=== PATIENT | female | born 1965 | race Caucasian/White ===

== ENCOUNTER 2020-03-13 08:01 | Outpatient (REF) | payer OTHER, SELFPAY ==
--- NOTE | 2020-03-13 08:05 | CT_ITS ---
EXAMINATION: CT CHEST WITHOUT CONTRAST CLINICAL INFORMATION: Pulmonary nodule. Follow-up. COMPARISON: CT chest with contrast 10/31/2018, 12/14/2017, 06/15/2017 TECHNIQUE: Multidetector volumetric CT imaging of the chest was done. No intravenous contrast. Axial MIP volume rendering provided. Sagittal and coronal reformatted images were obtained. This CT examination was performed using dose optimization techniques as appropriate, variously including the following: *Automated exposure control *Adjustment of mA and/or kV according to patient size (this includes techniques or standardized protocols for targeted exams where dose is matched to indication/reason for exam; i.e. extremities or head) *Use of iterative reconstruction technique DLP: 193 mGy-cm FINDINGS: LUNGS: The central airways are clear and there is no endobronchial lesion or bronchiectasis. There is no lobar or segmental airspace consolidation or groundglass opacity. Left lung nodularity is stable since 06/15/2017 consistent with benign nodules. There is no new nodularity. Again, there is a square pleural-based plaque posterior lateral lower lobe approximately 4 mm, series 7/439, and a pleural-based tag anterior lateral base series 7/540. Right lung nodularity is stable since 06/15/2017 consistent with benign nodules. There is no new nodularity. Largest nodule central right lower lobe just under 6 mm is triangular along an accessory fissure consistent with intraparenchymal node, series 7/355 and sagittal image 80. Next largest stable nodule 4 mm pleural-based anterior right middle lobe, series 7/421, sagittal 81. Other smaller stable nodularity again seen posteriorly series 7/192, anterior upper lobe series 7/244, anterior upper lobe series 7/274, and along the accessory fissure series 7/361. MEDIASTINUM: No no hilar or mediastinal lymphadenopathy. Heart size normal. No pericardial effusion. There is mild prominence again noted ascending aorta measuring 4.2 cm as noted previously. The aortic arch and descending thoracic aorta is unremarkable. PLEURA: There is no pleural effusion. No pleural mass or thickening. AXILLA: No lymphadenopathy. UPPER ABDOMEN: Adrenals unremarkable. There is small cyst versus focal fatty change anterior left lobe adjacent to intersegmental fissure. OSSEOUS STRUCTURES: Unremarkable. IMPRESSION: 1. Bilateral nodularity stable since CT 06/15/2017 consistent with benign nodules. No new nodule, adenopathy, or effusion. 2. Stable fullness ascending aorta 4.2 cm diameter.
== END 2020-03-13 08:02 | disposition home or self-care (01) ==
LOC: HO.CT 08:01
PROVIDERS: PCP Internal Medicine; Visit Provider Internal Medicine
DX: R91.1 Solitary pulmonary nodule (principal); I77.810 Thoracic aortic ectasia
CPT/HCPCS: 71250

== ENCOUNTER 2020-11-05 05:56 | Outpatient (REF) | payer OTHER, SELFPAY ==
[2020-11-05 07:38] LABS: MANUAL DIFF FLAG NO
[2020-11-05 07:44] LABS: Basophils Percent Auto 0.4 % (0-2); Eosinophils Absolute Auto 0.1 X10*3/uL (0.0-0.4); Hematocrit 41.6 % (37-47); Hemoglobin 14.1 g/dl (12.0-16.0); Imm Gran Abs Auto 0.01 X10*3/uL (0.00-0.03); Imm Gran Pct Auto 0.1 % (0.0-0.4); Lymphocytes Absolute Auto 3.1 X10*3/uL (1.2-4.9); Lymphocytes Percent Auto 45.5 % (20-40); Mean Corpuscular HGB Conc 33.9 g/dl (31.0-35.0); Mean Corpuscular Hemoglobin 32.7 pg (27.0-33.0); Mean Corpuscular Volume 96.5 fL (80-98); Mean Platelet Volume 9.6 fL (9.4-12.3); Monocytes Absolute Auto 0.5 X10*3/uL (0.1-1.2); Monocytes Percent Auto 7.4 % (2-11); Neutrophils Absolute Auto 3.1 X10*3/uL (2.0-8.3); Neutrophils Percent Auto 45.6 % (45-73); Platelet Count 340 X10*3/uL (160-400); Red Blood Count 4.31 X10*6/uL (4.20-5.50); Red Cell Distribution Width 12.4 % (11.0-16.0); White Blood Count 6.7 X10*3/uL (4.8-10.8)
[2020-11-05 07:50] LABS: Estimated Average Glucose 111 mg/dL; Hemoglobin A1c % 5.5 %
[2020-11-05 08:02] LABS: Alanine Aminotransferase 13 U/L (0-31); Albumin Level 4.6 g/dL (3.5-5.0); Alkaline Phosphatase 65 U/L (39-117); Anion Gap 12 (12-20); Aspartate Amino Transferase 21 U/L (5-31); Bilirubin Total 0.5 mg/dL (0.0-1.0); Blood Urea Nitrogen 12 mg/dL (9-16); Calcium 9.8 mg/dL (8.4-10.2); Carbon Dioxide 27 mmol/L (22-29); Chloride 107 mmol/L (96-108); Cholesterol 224 mg/dL; Estimated Glomerular Filt Rate > 60; Glucose Random 103 mg/dL (60-115); HDL Cholesterol 53 mg/dL; LDL Cholesterol Calculated 150 mg/dl; Potassium 4.3 mmol/L (3.3-5.1); Sodium 142 mmol/L (135-145); Total Protein 7.3 g/dL (6.5-8.0); Triglycerides 106 mg/dL; Uric Acid 4.2 mg/dL (2.4-5.7)
[2020-11-05 08:27] LABS: Free T4 (Free Thyroxine) 1.02 ng/dL (0.71-1.85); Thyroid Stimulating Hormone 3.88 uIU/mL (0.32-4.0); Vitamin D 25-OH Total 34.2 ng/mL (>30)
[2020-11-05 09:19] LABS: Folate 19.4 ng/mL (> or = 4.0); Vitamin B12 419 pg/mL (200-900)
== END 2020-11-05 05:57 | disposition home or self-care (01) ==
LOC: HO.LAB 05:56
PROVIDERS: PCP Internal Medicine; Visit Provider Internal Medicine
DX: E78.00 Pure hypercholesterolemia, unspecified (principal); R73.02 Impaired glucose tolerance (oral)
CPT/HCPCS: 36415; 80053; 80061; 82306; 82607; 82746; 83036; 84439; 84443; 84550; 85025

== ENCOUNTER 2021-05-03 15:29 | Outpatient (REF) | payer OTHER, SELFPAY ==
--- NOTE | ~2021-05-03 | US_ITS ---
EXAMINATION: US RETROPERITONEAL LIMITED (RENAL ONLY) CLINICAL INFORMATION: Unspecified abdominal pain. COMPARISON: Renal ultrasound 04/16/2010. CT abdomen and pelvis 03/14/2010. TECHNIQUE: Real-time imaging of the kidneys. FINDINGS: RIGHT KIDNEY: 10.1 x 4.6 x 5.4 cm (SAG x AP x TRV). The kidney is normal in size, contour, and echogenicity. Renal cortical thickness is normal. No calculi or focal parenchymal lesions. No hydronephrosis. LEFT KIDNEY: 9.6 x 5.2 x 6.0 cm (SAG x AP x TRV). The kidney is normal in size, contour, and echogenicity. Renal cortical thickness is normal. No calculi or focal parenchymal lesions. No hydronephrosis. US/US renal BI IMPRESSION: Unremarkable renal ultrasound.
== END 2021-05-03 15:30 | disposition home or self-care (01) ==
LOC: HO.HMGCX 15:29
PROVIDERS: PCP Internal Medicine; Visit Provider Internal Medicine
DX: R10.9 Unspecified abdominal pain (principal)
CPT/HCPCS: 76775

== ENCOUNTER 2021-08-14 07:22 | Outpatient (REF) | payer OTHER, SELFPAY ==
--- NOTE | ~2021-08-14 | XR_ITS ---
EXAMINATION: XR ELBOW, LEFT CLINICAL INFORMATION: Pain COMPARISON: None TECHNIQUE: AP, lateral, and oblique views of the left elbow. FINDINGS: The bones and soft tissues are normal. No fracture or joint effusion. Alignment is anatomic. Joint spaces are maintained. XR/XR elbow LT 2V IMPRESSION: Normal left elbow.
== END 2021-08-14 07:23 | disposition home or self-care (01) ==
LOC: HO.XRAY 07:22
PROVIDERS: PCP Internal Medicine; Visit Provider Internal Medicine
DX: M25.522 Pain in left elbow (principal)
CPT/HCPCS: 73070

== ENCOUNTER 2021-09-01 07:31 | Outpatient (REF) | payer OTHER, SELFPAY ==
--- NOTE | ~2021-09-01 | MM_ITS ---
EXAMINATION: MM SCREENING DIGITAL BREAST TOMOSYNTHESIS, BILATERAL CLINICAL INFORMATION: Screening. Asymptomatic. The lifetime risk of breast cancer based on the Tyrer-Cuzick Model is 8%. COMPARISON: Mammography: 11/20/2019, 11/06/2017, 03/21/2017 TECHNIQUE: Digital breast tomosynthesis is performed in both the craniocaudal and mediolateral oblique views along with computer-aided detection (CAD). Synthesized 2D images are generated from the tomosynthesis. FINDINGS: The breasts are almost entirely fatty (ACR BI-RADS breast composition Category a). Background stromal densities are stable. There are no significant masses, abnormal calcifications, or other abnormalities. Small dermal lesion again seen overlying the posterior upper outer right breast. MM/MM tomosynthesis screening BI IMPRESSION: No mammographic evidence of malignancy. ASSESSMENT: BI-RADS 2: Benign RECOMMENDATION: Routine annual mammography screening. This patient's information was entered into a reminder system with a target due date for their next mammogram.
== END 2021-09-01 07:32 | disposition home or self-care (01) ==
LOC: HO.MAMMO 07:31
PROVIDERS: PCP Internal Medicine; Visit Provider Internal Medicine
DX: Z12.31 Encounter for screening mammogram for malignant neoplasm of breast (principal)
CPT/HCPCS: 77063; 77067

== ENCOUNTER → 2021-10-12 13:45 | Outpatient (REF) | payer OTHER, SELFPAY ==
--- NOTE | 2021-10-12 13:50 | CA_ITS ---
Transthoracic Echocardiogram Patient (Last, First, Middle): Barbara Casarez M Gender: Female Date of : 1965 Age: 55 Procedure Date: 10/12/2021 Procedure Type: Transthoracic Echocardiogram Location: OP Height: 167.64 cm Weight: 106.6 kg BSA: 2.14 m2 Heart Rate: bpm BP: 120 / 80 mmHg Interior Block Wirer: SB Referring MD: Graciela Velez MD Symptoms: I77.810 - Thoracic aortic ectasia Study Quality: Adequate ECG Rhythm: Sinus Conclusions: - The left ventricular systolic function is normal. The calculated ejection fraction is 61% by biplane method. - There is mild calcification of the aortic valve. - There is mild dilatation of the ascending aorta measuring 4.20 cm. Findings Left Ventricle Normal left ventricular cavity size. There is normal left ventricular wall thickness. The left ventricular systolic function is normal. The calculated ejection fraction is 61% by biplane method. There is no evidence of regional wall motion abnormalities. LV peak global longitudinal strain -16.9%. Right Ventricle Normal right ventricular cavity size and systolic function. Atria Both atria are normal in size. Aortic Valve There is a normal trileaflet aortic valve. There is mild calcification of the aortic valve. There is no aortic valve stenosis. There is trace (trivial) aortic valve regurgitation. Mitral Valve The mitral valve appears normal. There is no mitral valve regurgitation. There is no mitral valve stenosis. Pulmonic Valve The pulmonic valve is likely normal. Tricuspid Valve Normal tricuspid valve structure. There is no tricuspid valve regurgitation. Tricuspid regurgitation envelope is inadequate for calculation of right ventricular systolic pressure. Great Vessels There is no dilatation of the sinuses of Valsalva, no dilatation of the sino tubular ridge, mild dilatation of the ascending aorta measuring 4.20 cm, and no dilatation of the aortic arch. Venous The inferior vena cava is normal in size and collapses greater than 50% with inspiration. Pericardium/Pleural There is no evidence of pericardial effusion. Prior Study Comparison Changes noted compared to prior study dated: 01/18/2017. Slight increase in ascending aortic size. Measurements 2D Linear Measurements IVSd: 1.02 0.6-0.9/0.6-1.0 cm LVIDd: 4.99 3.9-5.3/4.2-5.9 cm LVIDd Index: 2.33 2.4-3.2/2.2-3.1 cm/m2 LVIDs: 3.16 2.0-3.6 cm LVPWd: 0.71 0.7-1.1 cm LA Diam: 3.50 2.7-3.8/3.0-4.0 cm LAIDs Index: 1.64 1.5-2.3 cm/m2 LV Mass: 186.66 67-162/88-224 g LV Mass Index: 87.23 43-95/49-115 g/m2 LVOT Diam: 2.00 3.0+(-)1.3 cm 2D Systolic Function EF 4C: 61.50 >55% EF 2C: 62.60 >55% EF BiP: 61.40 >55% Mitral Valve MV Pk E: 0.59 MV PK A: 0.48 MV Decel Time: 238.00 E/A: 1.20 E'Lateral: 10.30 E'Medial: 8.38 E/E' Med: 7.00 E/E' Lat: 5.70 PHT: 70.00 MVA PHT: 3.14 Decel [place]: 2.47 Aortic Valve AoV Pk Pedrito: 1.28 AoV Mn [place]rito: 0.94 AoV VTI: 0.24 AoV Pk Grad: 7.00 Aov Mn Grad: 4.00 ALEX Cont.VTI: 3.14 LVOT LVOT Pk [place]: 1.26 LVOT Mn [place]: 0.85 LVOT VTI: 0.24 LVOT Pk Grad: 6.00 LVOT Mn Grad: 3.00 LVOT Diam: 2.00 LVOT Area: 3.14 Diastolic Function MV Pk E: 0.59 MV Pk A: 0.48 E/A: 1.20 E'Medial: 8.38 E/E' Med: 7.00 E' Laterial: 10.30 E/E' Lat: 5.70 Right Ventricle TAPSE (mm): 19.90 TVS' [place]: 12.50 Tricuspid Valve RA Press: 3.00 Great Vessels Aorta Sinus of Valsalva: 3.55 2.0-3.[address] [place]: 3.52 1.7-3.4 cm Ao Asc: 4.20 2.1-3.4 cm Ao Arch: 2.40 Ao Desc: 1.50 Pulmonary Valve PV Pk [place]: 0.86 Peak PV Grad: 3.00 Updated in Other Vendor System with Status of Final Wesley Funes MD electronically signed on 10/12/2021 4:40:13 PM with status of Final
== END ==
LOC: HO.CARD 13:45
PROVIDERS: PCP Internal Medicine; Visit Provider Internal Medicine
DX: I77.810 Thoracic aortic ectasia (principal)
CPT/HCPCS: 93306; 93356

== ENCOUNTER 2021-11-09 06:18 | Outpatient (REF) | payer OTHER, SELFPAY ==
[2021-11-09 06:37] LABS: MANUAL DIFF FLAG NO
[2021-11-09 07:27] LABS: Basophils Percent Auto 0.3 % (0-2); Eosinophils Absolute Auto 0.1 X10*3/uL (0.0-0.4); Eosinophils Percent Auto 1.4 % (0-4); Hematocrit 41.9 % (37.0-47.0); Hemoglobin 14.1 g/dl (12.0-16.0); Imm Gran Abs Auto 0.03 X10*3/uL (0.00-0.03); Imm Gran Pct Auto 0.5 % (0.0-0.4); Lymphocytes Absolute Auto 1.9 X10*3/uL (1.2-4.9); Lymphocytes Percent Auto 30.4 % (20-40); Mean Corpuscular HGB Conc 33.7 g/dl (31.0-35.0); Mean Corpuscular Hemoglobin 32.4 pg (27.0-33.0); Mean Corpuscular Volume 96.3 fL (80.0-98.0); Mean Platelet Volume 9.6 fL (9.4-12.3); Monocytes Absolute Auto 0.4 X10*3/uL (0.1-1.2); Monocytes Percent Auto 6.9 % (2-11); Neutrophils Absolute Auto 3.8 x10*3/uL (2.0-8.3); Neutrophils Percent Auto 60.5 % (45-73); Platelet Count 324 X10*3/uL (160-400); Red Blood Count 4.35 X10*6/uL (4.20-5.50); Red Cell Distribution Width 13.2 % (11.0-16.0); White Blood Count 6.3 X10*3/uL (4.8-10.8)
[2021-11-09 07:32] LABS: Estimated Average Glucose 114 mg/dL; Hemoglobin A1c % 5.6 %
[2021-11-09 08:05] LABS: Alanine Aminotransferase 15 U/L (0-31); Albumin Level 4.4 g/dL (3.5-5.0); Alkaline Phosphatase 69 U/L (39-117); Anion Gap 10 (12-20); Aspartate Amino Transferase 17 U/L (5-31); Bilirubin Total 0.5 mg/dL (0.0-1.0); Blood Urea Nitrogen 10 mg/dL (9-16); Calcium 9.3 mg/dL (8.4-10.2); Carbon Dioxide 31 mmol/L (22-29); Chloride 105 mmol/L (96-108); Cholesterol 234 mg/dL; Estimated Glomerular Filt Rate > 60; Glucose Random 110 mg/dL (60-115); HDL Cholesterol 47 mg/dL; LDL Cholesterol Calculated 153 mg/dl; Potassium 4.9 mmol/L (3.3-5.1); Sodium 141 mmol/L (135-145); Total Protein 7.2 g/dL (6.5-8.0); Triglycerides 172 mg/dL
[2021-11-09 08:34] LABS: Folate 9.9 ng/mL (> or = 4.0); Vitamin B12 403 pg/mL (200-900)
[2021-11-09 08:41] LABS: Free T4 (Free Thyroxine) 0.77 ng/dL (0.71-1.85); Vitamin D 25-OH Total 19.8 ng/mL (>30)
[2021-11-10 08:53] LABS: BV Int Neg Control Negative (Negative); BV Int Pos Control Positive (Positive)
[2021-11-10 09:02] LABS: CT PCR NOT DETECTED (Not Detect.); NG PCR NOT DETECTED (Not Detect.)
[2021-11-16 02:13] LABS: HPV mRNA E6/E7 rflx Not Detected (Not Detected)
== END 2021-11-09 06:19 | disposition home or self-care (01) ==
LOC: HO.LAB 06:18
PROVIDERS: PCP Internal Medicine; Visit Provider Internal Medicine
DX: Z12.4 Encounter for screening for malignant neoplasm of cervix (principal); Z11.3 Encounter for screening for infections with a predominantly sexual mode of transmission; Z11.51 Encounter for screening for human papillomavirus (HPV); R10.9 Unspecified abdominal pain; E78.00 Pure hypercholesterolemia, unspecified
CPT/HCPCS: 36415; 80053; 80061; 82306; 82607; 82746; 83036; 84439; 84443; 85025; 87086; 87480; 87491; 87510; 87591; 87624; 87660; 88142

== ENCOUNTER 2022-03-14 14:34 | Outpatient (REF) | payer OTHER, SELFPAY ==
[2022-03-14 15:14] LABS: COVID-19 Test Negative (Negative); IDNOW Serial# 16C4AD1C
== END 2022-03-14 14:35 | disposition home or self-care (01) ==
LOC: HO.LAB 14:34
PROVIDERS: Visit Provider Internal Medicine
DX: Z20.822 Contact with and (suspected) exposure to COVID-19 (principal)
CPT/HCPCS: 87635; C9803

== ENCOUNTER 2022-05-07 07:13 | Outpatient (REF) | payer OTHER, SELFPAY ==
[2022-05-07 08:21] LABS: Alanine Aminotransferase 12 U/L (0-31); Albumin Level 4.7 g/dL (3.5-5.0); Alkaline Phosphatase 72 U/L (39-117); Anion Gap 13 (12-20); Aspartate Amino Transferase 16 U/L (5-31); Blood Urea Nitrogen 12 mg/dL (9-16); Carbon Dioxide 29 mmol/L (22-29); Chloride 105 mmol/L (96-108); Cholesterol 282 mg/dL; Estimated Glomerular Filt Rate > 60; Glucose Random 105 mg/dL (60-115); HDL Cholesterol 56 mg/dL; LDL Cholesterol Calculated 195 mg/dl; Potassium 5.1 mmol/L (3.3-5.1); Sodium 142 mmol/L (135-145); Total Protein 7.6 g/dL (6.5-8.0); Triglycerides 159 mg/dL
[2022-05-07 08:33] LABS: Estimated Average Glucose 120 mg/dL; Hemoglobin A1c % 5.8 %
[2022-05-07 08:44] LABS: Bilirubin Total 0.5 mg/dL (0.0-1.0)
== END 2022-05-07 07:14 | disposition home or self-care (01) ==
LOC: HO.LAB 07:13
PROVIDERS: PCP Internal Medicine; Visit Provider Internal Medicine
DX: E78.00 Pure hypercholesterolemia, unspecified (principal); R73.02 Impaired glucose tolerance (oral)
CPT/HCPCS: 36415; 80053; 80061; 83036

== ENCOUNTER → 2022-05-27 15:01 | Outpatient (REF) | payer OTHER, SELFPAY ==
--- NOTE | 2022-05-27 15:04 | CA_ITS ---
Transthoracic Echocardiogram Patient (Last, First, Middle): Barbara Casarez M Gender: Female Date of : 1965 Age: 56 Procedure Date: 05/27/2022 Procedure Type: Transthoracic Echocardiogram Location: OP Height: 167.64 cm Weight: 94.8 kg BSA: 2.04 m2 Heart Rate: bpm BP: 134 / 80 mmHg Senior Staff Consultant: Referring MD: Graciela Velez MD Correction Lieutenant: Judd Jalloh MD Symptoms: I77.810 - Thoracic aortic ectasia Study Quality: Good ECG Rhythm: Sinus Conclusions: - 1. Normal LV systolic function with grade 1 diastolic dysfunction 2. Mild aortic regurgitation 3. Mildly dilated ascending aorta at 4.3 cm 4. No gross pericardial effusion Findings Left Ventricle Normal left ventricular size, thickness, and systolic function. The visually estimated ejection fraction is between 60-65%. Spectral Doppler is indicative of an impaired relaxation filling pattern. E/E prime ratio is <8, consistent with normal filling pressures. Evidence suggests grade I (mild) diastolic dysfunction. Right Ventricle Normal right ventricular cavity size and systolic function. Atria Both atria are normal in size. There is lipomatous hypertrophy of the interatrial septum. There is no evidence of interatrial shunt. Aortic Valve The aortic valve was not well visualized. There is mild calcification of the aortic valve. There is no aortic valve stenosis. There is mild aortic valve regurgitation. bicuspid aortic valve cannot be entirely ruled out on this study Mitral Valve Normal mitral valve structure and function. There is trace mitral valve regurgitation. There is no mitral valve stenosis. Pulmonic Valve The pulmonic valve is likely normal. There is trace pulmonic valve regurgitation. Tricuspid Valve Normal tricuspid valve structure. Tricuspid regurgitation envelope is inadequate for calculation of right ventricular systolic pressure. Normal right atrial pressure. Great Vessels The pulmonary artery was not well visualized. There is mild dilatation of the ascending aorta measuring 4.30 cm. Venous The inferior vena cava is normal in size and collapses greater than 50% with inspiration. Pericardium/Pleural There is no evidence of pericardial effusion. Prior Study Comparison Changes noted compared to prior study dated: 10/12/2021. Mild aortic regurgitation is noted on this study Measurements 2D Linear Measurements IVSd: 0.91 0.6-0.9/0.6-1.0 cm LVIDd: 4.50 3.9-5.3/4.2-5.9 cm LVIDd Index: 2.21 2.4-3.2/2.2-3.1 cm/m2 LVIDs: 3.00 2.0-3.6 cm LVPWd: 0.94 0.7-1.1 cm Ao Root: 3.90 2.1-3.5 cm LA Diam: 3.20 2.7-3.8/3.0-4.0 cm LAIDs Index: 1.57 1.5-2.3 cm/m2 LV Mass: 171.39 67-162/88-224 g LV Mass Index: 84.02 43-95/49-115 g/m2 LVOT Diam: 2.10 3.0+(-)1.3 cm Mitral Valve MV Pk E: 0.50 MV PK A: 0.56 MV Decel Time: 206.00 E/A: 0.90 E'Lateral: 11.10 E'Medial: 7.72 E/E' Med: 6.50 E/E' Lat: 4.50 PHT: 60.00 MVA PHT: 3.67 Decel [place]: 2.44 Aortic Valve AoV Pk Pedrito: 1.54 AoV Mn Pedrito: 1.07 AoV VTI: 0.33 AoV Pk Grad: 9.00 Aov Mn Grad: 5.00 ALEX Cont.VTI: 2.59 LVOT LVOT Pk [place]rito: 1.13 LVOT Mn Pedrito: 0.78 LVOT VTI: 0.25 LVOT Pk Grad: 5.00 LVOT Mn Grad: 3.00 LVOT Diam: 2.10 LVOT Area: 3.46 Diastolic Function MV Pk E: 0.50 MV Pk A: 0.56 E/A: 0.90 E'Medial: 7.72 E/E' Med: 6.50 E' Laterial: 11.10 E/E' Lat: 4.50 Right Ventricle TAPSE (mm): 25.30 TVS' [place]: 10.30 Tricuspid Valve TR Pk Pedrito: 2.09 TR Pk Grad: 17.00 Great Vessels Aorta Ao Root-2D: 3.90 2.0-3.7 cm Ao Asc: 4.30 2.1-3.4 cm Pulmonary Valve PV Pk Pedrito: 0.98 Peak PV Grad: 4.00 Updated in Other Vendor System with Status of Final Judd Jalloh MD electronically signed on 05/28/2022 10:21:17 AM with status of Final
== END ==
LOC: HO.CARD 15:01
PROVIDERS: PCP Internal Medicine; Visit Provider Internal Medicine
DX: I77.810 Thoracic aortic ectasia (principal)
CPT/HCPCS: 93306

== ENCOUNTER 2022-08-13 07:02 | Outpatient (REF) | payer OTHER, SELFPAY ==
[2022-08-13 09:15] LABS: Estimated Average Glucose 108 mg/dL; Hemoglobin A1C 149.5595 umol/L; Hemoglobin A1c % 5.4 %
[2022-08-13 09:39] LABS: Alanine Aminotransferase 12 U/L (0-31); Albumin Level 4.5 g/dL (3.5-5.0); Alkaline Phosphatase 65 U/L (39-117); Anion Gap 14 (12-20); Aspartate Amino Transferase 16 U/L (5-31); Bilirubin Total 0.5 mg/dL (0.0-1.0); Blood Urea Nitrogen 10 mg/dL (9-16); Calcium 9.5 mg/dL (8.4-10.2); Carbon Dioxide 26 mmol/L (22-29); Chloride 105 mmol/L (96-108); Cholesterol 180 mg/dL; Estimated Glomerular Filt Rate > 60; Glucose Random 89 mg/dL (60-115); HDL Cholesterol 47 mg/dL; LDL Cholesterol Calculated 114 mg/dl; Potassium 4.9 mmol/L (3.3-5.1); Sodium 140 mmol/L (135-145); Total Protein 7.2 g/dL (6.5-8.0); Triglycerides 99 mg/dL
[2022-08-13 09:40] LABS: Vitamin D 25-OH Total 54.1 ng/mL (>30)
== END 2022-08-13 07:03 | disposition home or self-care (01) ==
LOC: HO.LAB 07:02
PROVIDERS: PCP Internal Medicine; Visit Provider Internal Medicine
DX: E78.00 Pure hypercholesterolemia, unspecified (principal); E55.9 Vitamin D deficiency, unspecified; R73.02 Impaired glucose tolerance (oral)
CPT/HCPCS: 36415; 80053; 80061; 82306; 83036

== ENCOUNTER 2022-11-12 07:17 | Outpatient (REF) | payer OTHER, SELFPAY ==
[2022-11-12 07:54] LABS: MANUAL DIFF FLAG NO
[2022-11-12 08:08] LABS: Basophils Percent Auto 0.3 % (0-2); Eosinophils Absolute Auto 0.1 X10*3/uL (0.0-0.4); Eosinophils Percent Auto 0.5 % (0-4); Hematocrit 46.3 % (37.0-47.0); Hemoglobin 15.8 g/dl (12.0-16.0); Imm Gran Abs Auto 0.04 X10*3/uL (0.00-0.03); Imm Gran Pct Auto 0.4 % (0.0-0.4); Lymphocytes Percent Auto 35.9 % (20-40); Mean Corpuscular HGB Conc 34.1 g/dl (31.0-35.0); Mean Corpuscular Hemoglobin 32.4 pg (27.0-33.0); Mean Corpuscular Volume 95.1 fL (80.0-98.0); Mean Platelet Volume 9.3 fL (9.4-12.3); Monocytes Absolute Auto 0.6 X10*3/uL (0.1-1.2); Monocytes Percent Auto 5.6 % (2-11); Neutrophils Absolute Auto 6.3 x10*3/uL (2.0-8.3); Neutrophils Percent Auto 57.3 % (45-73); Platelet Count 386 X10*3/uL (160-400); Red Blood Count 4.87 X10*6/uL (4.20-5.50); Red Cell Distribution Width 13.1 % (11.0-16.0); White Blood Count 11.1 X10*3/uL (4.8-10.8)
[2022-11-12 08:12] LABS: Estimated Average Glucose 100 mg/dL; Hemoglobin A1c % 5.1 %
[2022-11-12 08:42] LABS: Alanine Aminotransferase 10 U/L (0-31); Albumin Level 4.8 g/dL (3.5-5.0); Alkaline Phosphatase 67 U/L (39-117); Anion Gap 17 (12-20); Aspartate Amino Transferase 16 U/L (5-31); Bilirubin Total 0.6 mg/dL (0.0-1.0); Blood Urea Nitrogen 14 mg/dL (9-16); Calcium 10.5 mg/dL (8.4-10.2); Carbon Dioxide 23 mmol/L (22-29); Chloride 105 mmol/L (96-108); Cholesterol 248 mg/dL; Estimated Glomerular Filt Rate > 60; Glucose Random 117 mg/dL (60-115); HDL Cholesterol 50 mg/dL; LDL Cholesterol Calculated 176 mg/dl; Potassium 4.8 mmol/L (3.3-5.1); Sodium 140 mmol/L (135-145); Total Protein 8.1 g/dL (6.5-8.0); Triglycerides 113 mg/dL
[2022-11-12 09:02] LABS: Free T4 (Free Thyroxine) 0.85 ng/dL (0.71-1.85); Thyroid Stimulating Hormone 2.63 uIU/mL (0.32-4.0); Vitamin D 25-OH Total 53.9 ng/mL (>30)
[2022-11-12 09:08] LABS: Folate 12.3 ng/mL (> or = 4.0); Vitamin B12 410 pg/mL (200-900)
== END 2022-11-12 07:18 | disposition home or self-care (01) ==
LOC: HO.LAB 07:17
PROVIDERS: PCP Internal Medicine; Visit Provider Internal Medicine
DX: R73.02 Impaired glucose tolerance (oral) (principal); E78.00 Pure hypercholesterolemia, unspecified; E55.9 Vitamin D deficiency, unspecified
CPT/HCPCS: 36415; 80053; 80061; 82306; 82607; 82746; 83036; 84439; 84443; 85025

== ENCOUNTER 2023-02-16 06:05 | Outpatient (REF) | payer OTHER, SELFPAY ==
[2023-02-16 08:12] LABS: Alanine Aminotransferase 8 U/L (0-31); Albumin Level 4.6 g/dL (3.5-5.0); Alkaline Phosphatase 60 U/L (39-117); Anion Gap 12 (12-20); Aspartate Amino Transferase 15 U/L (5-31); Bilirubin Total 0.5 mg/dL (0.0-1.0); Blood Urea Nitrogen 11 mg/dL (9-16); Calcium 9.8 mg/dL (8.4-10.2); Carbon Dioxide 25 mmol/L (22-29); Chloride 109 mmol/L (96-108); Estimated Glomerular Filt Rate > 60; Glucose Random 91 mg/dL (60-115); Sodium 142 mmol/L (135-145); Total Protein 7.5 g/dL (6.5-8.0)
[2023-02-20 14:38] LABS: Calcium (PTHI) 10.1 mg/dL (8.6-10.4); PTHI 39 pg/mL (16-77)
[2023-02-20 21:04] LABS: Calcium, Ionized 5.1 mg/dL (4.7-5.5)
== END 2023-02-16 06:06 | disposition home or self-care (01) ==
LOC: HO.LAB 06:05
PROVIDERS: PCP Internal Medicine; Visit Provider Internal Medicine
DX: E83.52 Hypercalcemia (principal)
CPT/HCPCS: 36415; 80053; 82330; 83970

== ENCOUNTER 2023-02-17 14:11 | Outpatient (AMB) | payer OTHER, SELFPAY ==
--- NOTE | 2023-02-17 14:30 | MHC.PC.OV ---
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: Not Required per policy Accompanied by: Self / Same As Patient Allergies barium sulfate Allergy (Intermediate, Verified 02/17/23 14:39) hypertension carisoprodol [CARISOPRODOL] Allergy (Intermediate, Verified 02/17/23 14:39) DIFFICULTY BREATHING Sulfa (Sulfonamide Antibiotics) [SULFA (SULFONAMIDE ANTIBIOTICS)] Allergy (Intermediate, Verified 02/17/23 14:39) NAUSEA/DIZZINESS/SEVERE BACK PAIN, dyspnea varenicline Allergy (Intermediate, Verified 02/17/23 14:39) Unknown Medication List - Last Reconciled 02/17/23 by Graciela Velez MD alprazolam 0.5 mg PO BID 30 days fluoxetine 40 mg PO DAILY 90 days ibuprofen (Motrin IB) 200 mg PO Q6H PRN loratadine 10 mg PO DAILY omeprazole 40 mg PO DAILY 90 days ondansetron HCl 8 mg PO Q12H PRN semaglutide (weight loss) 2.4 mg (0.75 mL) subcut QWEEK 90 days simvastatin 10 mg PO BEDTIME 30 days Tobacco use date assessed: 11/14/22 Dental Screening Dental Screen Date: 02/17/23 Did you have a dental visit in the last 12 months?: Yes Did you have a dental problem in the last 6 months where you did not have access to dental care?: No Was dental information given to patient?: Patient has dentist HPI hypercalcemia overweight, ERIC HPI Details 57 year old overweight female with hypercholesterolemia impaired glucose tolerance asthma generalized anxiety disorder coming in for follow-up. Last seen in October 2022. Patient has mammogram is due . Patient complained of being [place] and had no money for the last week for the semaglutide and so stop taking it discussed about and discussed about how to maintain the weight now that she has lost her weight to target decrease semaglutide but advised to keep active and eat healthy. Declined to decrease fluoxetine stop therapy because did not appreciate counselor. Discussed about the blood work parathyroid test is not in yet. Was hoping the cholesterol was tested but this was not. [facility] Medical History Counseling and coordination of care Stress at work Nausea Chronic vertigo Breast cancer screening by mammogram Elbow pain, left Obesity (BMI 30-39.9) Tear of left acetabular labrum Lumbar disc herniation Carpal tunnel syndrome Pulmonary nodule Dilated aortic root Asthma GERD (gastroesophageal reflux disease) Impaired glucose tolerance Hypercholesterolemia Allergic rhinitis Surgical History History of endometrial ablation History of tubal ligation Family History Father Emphysema of lung Mother Anxiety Diabetes Maternal Grandmother Breast cancer Son In good health Family/Other Anxiety Chronic mental illness Other Mental health problem Social History Housing: Apartment Alcohol intake: current Patient Tobacco Use Status: Former Tobacco user Tobacco use type: Cigarette Years Smoked: smokes pot. quit 02/12/2017 e-Cigarette/Vaping Use: Never Used Second Hand Smoke Exposure: Yes service: No Current occupational status: employed Cognitive needs: No Hearing needs: No Vision needs: No Questionnaire PHQ-9 Over the last 2 weeks, how often have you been bothered by any of the following problems? 1. Little interest or pleasure in doing things: not at all 2. Feeling down, depressed, or hopeless: not at all 3. Trouble falling or staying asleep, or sleeping too much: not at all 4. Feeling tired or having little energy: not at all 5. Poor appetite or overeating: not at all 6. Feeling bad about yourself - or that you are a failure or have let yourself or your family down: not at all 7. Trouble concentrating on things, such as reading the newspaper or watching television: not at all 8. Moving or speaking so slowly that other people could have noticed. Or the opposite - being so fidgety or restless that you have been moving around a lot more than usual: not at all 9. Thoughts that you would be better off or of hurting yourself in some way: not at all Total score: 0 Depression Screening Interpretation: Negative Source: Developed by Drs. Colby Cifuentes, Rosa Isela Campbell, Km Martin and colleagues, with an educational estefany from [email or web address]. Thrive Questionnaire Date Thrive assessed: 08/18/22 AUDIT C Alcohol Use Questionnaire (AUDIT-C) 1. How often do you have a drink containing alcohol?: Never Total Score: 0 ERIC-7 AMB Questionnaire ERIC-7 Date ERIC - 7 assessed: 08/18/22 Source: Developed by Drs. Colby Cifuentes, Rosa Isela Campbell, Km Martin and colleagues, with an educational estefany from [email or web address]. Physical exam (Primary Care) Vital Signs: Last Vital Signs Pulse 82 02/17/23 14:38 BP 120/74 02/17/23 14:38 Pulse Ox 98 02/17/23 14:38 Oxygen Delivery Method Room Air 02/17/23 14:43 BMI result Body Mass Index 27.0 Tobacco/Smoking Status: Tobacco use Status Tobacco use date assessed 11/14/22 02/17/23 14:31 Patient Tobacco Use Status Former Tobacco user 02/17/23 14:31 Tobacco use type Cigarette 02/17/23 14:31 e-Cigarette/Vaping Use Never Used 02/17/23 14:31 PHQ-9: PHQ-9 Score PHQ-9: Total score 0 02/17/23 14:43 Depression Screening Interpretation: Negative Thrive Assessment: Date of Thrive Assessment Date Thrive assessed 08/18/22 02/17/23 14:31 Const General: alert; No acute distress Eyes Conjunctivae: conjunctivae normal Resp Auscultation: clear to auscultation bilaterally Cardio Rate: regular rate Rhythm: regular rhythm GI Inspection: Yes normal to inspection Extrem General: Yes normal to inspection and No edema Assessment and Plan Assessment & Plan (1) Overweight (BMI 25.0-29.9): Code(s): E66.3 - Overweight Plan: continue with diet and exercise and semaglutide (2) Hypercholesterolemia: Code(s): E78.00 - Pure hypercholesterolemia, unspecified Plan: Avoid fried foods, chicken skin, eggs, butter margarine, pastries and meat. Be it pork or beef they have a lot of cholesterol LDL goal of less than 130 and triglyceride of less than 150. Patient is on simvastatin 10 mg once a day (3) Impaired glucose tolerance: Code(s): R73.02 - Impaired glucose tolerance (oral) Plan: Decrease the amount of carbohydrate intake, pasta, bread, rice and potatoes are all sugar and that is aside from all the sweet stuff, remember that fruits are good but they are Sweet also. (4) GERD (gastroesophageal reflux disease): Code(s): K21.9 - Gastro-esophageal reflux disease without esophagitis Plan: Avoid the foods that causes that usually spicy foods, tomato products, juices, coffee, soda and foods that your sensitive to. After eating do not lie down, allow 3-4 hours before in lie down. And keep the head of bed above 30 degrees to avoid the acid from going up. (5) Generalized anxiety disorder: Comment: [facility] Code(s): F41.1 - Generalized anxiety disorder Plan: Continue with counseling and therapy (6) Hypercalcemia: Code(s): E83.52 - Hypercalcemia Plan: Resolved Orders: Orders Free T4 (Free Thyroxine) 3 Months R73.02 - Impaired glucose tolerance (oral) Complete Blood Count Auto Diff 3 Months R73.02 - Impaired glucose tolerance (oral) Thyroid Stimulating Hormone 3 Months R73.02 - Impaired glucose tolerance (oral) Vitamin B12 and Folate 3 Months R73.02 - Impaired glucose tolerance (oral) Vitamin D 25-OH Total 3 Months R73.02 - Impaired glucose tolerance (oral) Comprehensive Met. Panel 3 Months R73.02 - Impaired glucose tolerance (oral) Hemoglobin A1c 3 Months R73.02 - Impaired glucose tolerance (oral) Lipid Panel 3 Months E78.00 - Pure hypercholesterolemia, unspecified, R73.02 - Impaired glucose tolerance (oral) Medications: Changed From semaglutide (weight loss) 2.4 mg (0.75 mL) subcut QWEEK 90 days 12 ea 3RF E66.9 - Obesity, unspecified To semaglutide (weight loss) 1.7 mg (0.75 mL) subcut QWEEK 90 days 12 ea 3RF E66.9 - Obesity, unspecified Coding Level of Care Code Est Pt Level 4 (07136) Diagnoses Overweight (BMI 25.0-29.9) E66.3 Hypercholesterolemia E78.00 Impaired glucose tolerance R73.02 GERD (gastroesophageal reflux disease) K21.9 Generalized anxiety disorder F41.1 Hypercalcemia E83.52
[2023-02-17 14:38] VITALS: BP 120/74; PULSE 82; O2SAT 98; BMI 27.0
== END 2023-02-17 15:04 | disposition home or self-care (01) ==
PROVIDERS: PCP Internal Medicine; Visit Provider Internal Medicine
DX: K21.9 Gastro-esophageal reflux disease without esophagitis (principal); E83.52 Hypercalcemia; E66.3 Overweight; E78.00 Pure hypercholesterolemia, unspecified; R73.02 Impaired glucose tolerance (oral); F41.1 Generalized anxiety disorder
CPT/HCPCS: 99214

== ENCOUNTER 2023-06-07 16:25 | Outpatient (REF) | payer OTHER, SELFPAY ==
[2023-06-07 16:34] LABS: MANUAL DIFF FLAG NO
[2023-06-07 17:50] LABS: Basophils Percent Auto 0.3 % (0-2); Eosinophils Absolute Auto 0.1 X10*3/uL (0.0-0.4); Eosinophils Percent Auto 0.6 % (0-4); Hematocrit 41.3 % (37.0-47.0); Hemoglobin 14.1 g/dl (12.0-16.0); Imm Gran Abs Auto 0.02 X10*3/uL (0.00-0.03); Imm Gran Pct Auto 0.3 % (0.0-0.4); Lymphocytes Absolute Auto 3.7 X10*3/uL (1.2-4.9); Lymphocytes Percent Auto 46.7 % (20-40); Mean Corpuscular HGB Conc 34.1 g/dl (31.0-35.0); Mean Corpuscular Hemoglobin 32.7 pg (27.0-33.0); Mean Corpuscular Volume 95.8 fL (80.0-98.0); Mean Platelet Volume 9.1 fL (9.4-12.3); Monocytes Absolute Auto 0.5 X10*3/uL (0.1-1.2); Monocytes Percent Auto 6.4 % (2-11); Neutrophils Absolute Auto 3.6 x10*3/uL (2.0-8.3); Neutrophils Percent Auto 45.7 % (45-73); Platelet Count 355 X10*3/uL (160-400); Red Blood Count 4.31 X10*6/uL (4.20-5.50); Red Cell Distribution Width 12.6 % (11.0-16.0); White Blood Count 7.9 X10*3/uL (4.8-10.8)
[2023-06-07 18:07] LABS: Estimated Average Glucose 100 mg/dL; Hemoglobin A1c % 5.1 % (<6.0)
[2023-06-07 18:24] LABS: Alanine Aminotransferase 9 U/L (0-31); Albumin Level 4.6 g/dL (3.5-5.0); Alkaline Phosphatase 61 U/L (39-117); Anion Gap 16 (12-20); Aspartate Amino Transferase 17 U/L (5-31); Bilirubin Total 0.5 mg/dL (0.0-1.0); Blood Urea Nitrogen 10 mg/dL (9-16); Calcium 9.7 mg/dL (8.4-10.2); Carbon Dioxide 25 mmol/L (22-29); Chloride 102 mmol/L (96-108); Cholesterol 253 mg/dL (<200); Estimated Glomerular Filt Rate > 60; Glucose Random 80 mg/dL (60-115); HDL Cholesterol 65 mg/dL (>40); LDL Cholesterol Calculated 169 mg/dL (<100); Potassium 3.8 mmol/L (3.3-5.1); Sodium 139 mmol/L (135-145); Total Protein 7.7 g/dL (6.5-8.0); Triglycerides 97 mg/dL (<150)
[2023-06-07 18:41] LABS: Free T4 (Free Thyroxine) 0.83 ng/dL (0.71-1.85); Thyroid Stimulating Hormone 6.14 uIU/mL (0.32-4.0); Vitamin D 25-OH Total 44.1 ng/mL (>30)
[2023-06-07 18:47] LABS: Vitamin B12 458 pg/mL (200-900)
== END 2023-06-07 16:26 | disposition home or self-care (01) ==
LOC: HO.LAB 16:25
PROVIDERS: PCP Internal Medicine; Visit Provider Internal Medicine
DX: R73.02 Impaired glucose tolerance (oral) (principal); E78.00 Pure hypercholesterolemia, unspecified
CPT/HCPCS: 36415; 80053; 80061; 82306; 82607; 82746; 83036; 84439; 84443; 85025

== ENCOUNTER 2023-06-08 15:25 | Outpatient (AMB) | payer OTHER, SELFPAY ==
[2023-06-08 15:26] VITALS: BP 138/76; PULSE 73; O2SAT 94; BMI 26.5
--- NOTE | 2023-06-08 15:26 | A.OFFPC_ITS ---
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: No Allergies barium sulfate Allergy (Intermediate, Verified 06/08/23 15:30) hypertension carisoprodol [CARISOPRODOL] Allergy (Intermediate, Verified 06/08/23 15:30) DIFFICULTY BREATHING Sulfa (Sulfonamide Antibiotics) [SULFA (SULFONAMIDE ANTIBIOTICS)] Allergy (Intermediate, Verified 06/08/23 15:30) NAUSEA/DIZZINESS/SEVERE BACK PAIN, dyspnea varenicline Allergy (Intermediate, Verified 06/08/23 15:30) Unknown simvastatin Adverse Reaction (Intermediate, Unverified 06/08/23 15:59) weird dreams Tobacco use date assessed: 06/08/23 HPI 3 Months F/U HPI Details 57-year-old overweight female with hyper cholesterolemia impaired glucose tolerance GERD and generalized anxiety disorder last seen in January 2023. Patient's mammogram is due colonoscopy done 2018. complaining of L neck area and deny fall - had hx of herniated disc and complaining of radiation to the L neck area and L shoulder . also stress at work. still on [facility] Medical History Counseling and coordination of care Stress at work Nausea Chronic vertigo Breast cancer screening by mammogram Elbow pain, left Obesity (BMI 30-39.9) Tear of left acetabular labrum Lumbar disc herniation Carpal tunnel syndrome Pulmonary nodule Dilated aortic root Asthma GERD (gastroesophageal reflux disease) Impaired glucose tolerance Hypercholesterolemia Allergic rhinitis Surgical History History of endometrial ablation History of tubal ligation Family History Father Emphysema of lung Mother Anxiety Diabetes Maternal Grandmother Breast cancer Son In good health Family/Other Anxiety Chronic mental illness Other Mental health problem Social History Housing: Apartment Alcohol intake: current Patient Tobacco Use Status: Former Tobacco user Tobacco use type: Cigarette Years Smoked: smokes pot. quit 02/12/2017 e-Cigarette/Vaping Use: Never Used Second Hand Smoke Exposure: Yes service: No Current occupational status: employed Cognitive needs: No Hearing needs: No Vision needs: No Questionnaire PHQ-9 Over the last 2 weeks, how often have you been bothered by any of the following problems? 1. Little interest or pleasure in doing things: not at all 2. Feeling down, depressed, or hopeless: not at all 3. Trouble falling or staying asleep, or sleeping too much: not at all 4. Feeling tired or having little energy: not at all 5. Poor appetite or overeating: not at all 6. Feeling bad about yourself - or that you are a failure or have let yourself or your family down: not at all 7. Trouble concentrating on things, such as reading the newspaper or watching television: not at all 8. Moving or speaking so slowly that other people could have noticed. Or the opposite - being so fidgety or restless that you have been moving around a lot more than usual: not at all 9. Thoughts that you would be better off or of hurting yourself in some way: not at all Total score: 0 Depression Screening Interpretation: Negative Depression Screening Done: Yes Source: Developed by Drs. Colby Cifuentes, Rosa Isela Campbell, Km Martin and colleagues, with an educational estefany from [employer]. Thrive Questionnaire Date Thrive assessed: 06/08/23 I am a: Patient What is your living situation today?: I have a steady place to live Within the past 12 months, did the food you bought not last and you didn't have the money to get more?: Never true Within the past 12 months, did you worry whether your food would run out before you got money to buy more?: Never true Do you have trouble paying for medicines?: No Do you have trouble getting transportation to medical appointments?: No Do you have trouble paying your heating and electricity bill?: No Do you have trouble taking care of your child, family member or friend?: No Do you have trouble with day-to-day activities such as bathing, preparing meals, shopping, managing finances, etc.?: No Are you currently unemployed and looking for a job?: No Are you interested in more education?: No AUDIT C Alcohol Use Questionnaire (AUDIT-C) 1. How often do you have a drink containing alcohol?: Never Total Score: 0 ERIC-7 AMB Questionnaire ERIC-7 Date ERIC - 7 assessed: 06/08/23 Feeling nervous, anxious, or on edge: 0 = Not at all Not being able to stop or control worryin = Not at all Worrying too much about different things: 0 = Not at all Trouble relaxin = Not at all Being so restless that it is hard to sit still: 0 = Not at all Becoming easily annoyed or irritable: 0 = Not at all Feeling afraid as if something awful might happen: 0 = Not at all Total ERIC-7 score (0-4 normal; 5-9 mild; 10-14 moderate; 15-21 severe): 0 Source: Developed by Drs. Colby Cifuentes, Rosa Isela Campbell, Km Martin and colleagues, with an educational estefany from [employer]. Physical exam (Primary Care) Vital Signs: Last Vital Signs Pulse 73 06/08/23 15:26 BP 138/76 06/08/23 15:26 Pulse Ox 94 06/08/23 15:26 Oxygen Delivery Method Room Air 06/08/23 15:26 BMI result Body Mass Index 26.5 Tobacco/Smoking Status: Tobacco use Status Tobacco use date assessed 06/08/23 06/08/23 15:27 Patient Tobacco Use Status Former Tobacco user 06/08/23 15:27 Tobacco use type Cigarette 06/08/23 15:27 e-Cigarette/Vaping Use Never Used 06/08/23 15:27 PHQ-9: PHQ-9 Score PHQ-9: Total score 0 06/08/23 15:27 Depression Screening Interpretation: Negative Thrive Assessment: Date of Thrive Assessment Date Thrive assessed 06/08/23 06/08/23 15:27 Const General: alert; No acute distress Eyes Conjunctivae: conjunctivae normal Resp Auscultation: clear to auscultation bilaterally Cardio Rate: regular rate Rhythm: regular rhythm GI Inspection: Yes normal to inspection Extrem General: Yes normal to inspection and No edema Assessment and Plan Assessment & Plan (1) Hypercholesterolemia: Code(s): E78.00 - Pure hypercholesterolemia, unspecified Plan: Avoid fried foods, chicken skin, eggs, butter margarine, pastries and meat. Be it pork or beef they have a lot of cholesterol LDL goal of less than 130 and triglyceride of less than 150 patient on simvastatin 10 mg at bedtime (2) Impaired glucose tolerance: Code(s): R73.02 - Impaired glucose tolerance (oral) Plan: Decrease the amount of carbohydrate intake, pasta, bread, rice and potatoes are all sugar and that is aside from all the sweet stuff, remember that fruits are good but they are Sweet also. (3) GERD (gastroesophageal reflux disease): Code(s): K21.9 - Gastro-esophageal reflux disease without esophagitis Plan: Avoid the foods that causes that usually spicy foods, tomato products, juices, coffee, soda and foods that your sensitive to. After eating do not lie down, allow 3-4 hours before in lie down. And keep the head of bed above 30 degrees to avoid the acid from going up. (4) Asthma: Code(s): J45.909 - Unspecified asthma, uncomplicated Plan: Stable (5) Generalized anxiety disorder: Comment: [facility] counselling Code(s): F41.1 - Generalized anxiety disorder Plan: Continue with counseling and therapy (6) Cervical radiculopathy: Code(s): M54.12 - Radiculopathy, cervical region (7) TSH elevation: Code(s): R79.89 - Other specified abnormal findings of blood chemistry Orders: Orders XR cervical spine 2V Today M54.12 - Radiculopathy, cervical region Lipid Panel 3 Months E78.00 - Pure hypercholesterolemia, unspecified Comprehensive Met. Panel 3 Months E78.00 - Pure hypercholesterolemia, unspecified Thyroid Stimulating Hormone 3 Months R79.89 - Other specified abnormal findings of blood chemistry Free T4 (Free Thyroxine) 3 Months R79.89 - Other specified abnormal findings of blood chemistry Medications: New atorvastatin 10 mg PO DAILY 30 tabs 3RF E78.00 - Pure hypercholesterolemia, unspecified Discontinued simvastatin Discontinued Reason: Doctor's Order 10 mg PO BEDTIME 90 tabs 3RF 30 days E78.00 - Pure hypercholesterolemia, unspecified Coding Level of Care Code Est Pt Level 4 (19057) Diagnoses Hypercholesterolemia E78.00 Impaired glucose tolerance R73.02 GERD (gastroesophageal reflux disease) K21.9 Asthma J45.909 Generalized anxiety disorder F41.1 Cervical radiculopathy M54.12 TSH elevation R79.89
== END 2023-06-08 16:09 | disposition home or self-care (01) ==
PROVIDERS: PCP Internal Medicine; Visit Provider Internal Medicine
DX: E78.00 Pure hypercholesterolemia, unspecified (principal); R73.02 Impaired glucose tolerance (oral); K21.9 Gastro-esophageal reflux disease without esophagitis; J45.909 Unspecified asthma, uncomplicated; F41.1 Generalized anxiety disorder; M54.12 Radiculopathy, cervical region; R79.89 Other specified abnormal findings of blood chemistry
CPT/HCPCS: 99214

== ENCOUNTER 2023-06-08 16:13 | Outpatient (REF) | payer OTHER, SELFPAY ==
--- NOTE | ~2023-06-08 | XR_ITS ---
EXAMINATION: XR CERVICAL SPINE CLINICAL INFORMATION: Radiculopathy. COMPARISON: CTA head and cervical spine 10/31/2018. TECHNIQUE: 3 views of the cervical spine were obtained. FINDINGS: Straightening of the cervical lordosis. Trace anterolisthesis of C4 on C5 and trace retrolisthesis of C5 on C6. No evidence of acute compression deformity. Moderate to severe intervertebral disc height loss at C5-C6 and C6-C7. Mild multilevel facet arthropathy. No prevertebral soft tissue thickening. Included portions of the lung apices are clear. XR/XR cervical spine 2V IMPRESSION: 1. No acute compression deformity. 2. Moderate to severe lower cervical spondylosis. 3. Trace anterolisthesis of C4 on C5 and trace retrolisthesis of C5 on C6.
== END 2023-06-08 16:14 | disposition home or self-care (01) ==
LOC: HO.XRAY 16:13
PROVIDERS: PCP Internal Medicine; Visit Provider Internal Medicine
DX: M54.12 Radiculopathy, cervical region (principal)
CPT/HCPCS: 72040

== ENCOUNTER 2023-09-13 15:41 | Outpatient (REF) | payer OTHER, SELFPAY ==
[2023-09-13 17:23] LABS: Alanine Aminotransferase 11 U/L (0-31); Albumin Level 4.2 g/dL (3.5-5.0); Alkaline Phosphatase 60 U/L (39-117); Anion Gap 10 (12-20); Aspartate Amino Transferase 18 U/L (5-31); Bilirubin Total 0.3 mg/dL (0.0-1.0); Blood Urea Nitrogen 14 mg/dL (9-16); Calcium 9.4 mg/dL (8.4-10.2); Carbon Dioxide 30 mmol/L (22-29); Chloride 102 mmol/L (96-108); Cholesterol 163 mg/dL (<200); Estimated Glomerular Filt Rate > 60; Glucose Random 78 mg/dL (60-115); HDL Cholesterol 54 mg/dL (>40); LDL Cholesterol Calculated 90 mg/dL (<100); Potassium 4.2 mmol/L (3.3-5.1); Sodium 138 mmol/L (135-145); Total Protein 6.8 g/dL (6.5-8.0); Triglycerides 96 mg/dL (<150)
[2023-09-13 17:38] LABS: Free T4 (Free Thyroxine) 0.78 ng/dL (0.71-1.85); Thyroid Stimulating Hormone 2.57 uIU/mL (0.32-4.0)
== END 2023-09-13 15:42 | disposition home or self-care (01) ==
LOC: HO.LAB 15:41
PROVIDERS: PCP Internal Medicine; Visit Provider Internal Medicine
DX: E78.00 Pure hypercholesterolemia, unspecified (principal); R79.89 Other specified abnormal findings of blood chemistry
CPT/HCPCS: 36415; 80053; 80061; 84439; 84443

== ENCOUNTER 2023-09-14 08:37 | Outpatient (AMB) | payer OTHER, SELFPAY ==
[2023-09-14 08:40] VITALS: BP 130/78; PULSE 88; O2SAT 98; BMI 27.0
--- NOTE | 2023-09-14 08:40 | MHC.PC.OV ---
Vital Signs 09/14/23 08:40 Height 5 ft 6 in Weight 167 lb BMI 27.0 BP 130/78 Blood Pressure Location Lt brachial Position Sitting Pulse 88 Pulse Source Pulse Oximeter Pulse Oximetry (%) 98 Oxygen Delivery Method Room Air Intake Visit Reasons: Cholesterol Allergies barium sulfate Allergy (Intermediate, Verified 09/14/23 08:40) hypertension carisoprodol [CARISOPRODOL] Allergy (Intermediate, Verified 09/14/23 08:40) DIFFICULTY BREATHING Sulfa (Sulfonamide Antibiotics) [SULFA (SULFONAMIDE ANTIBIOTICS)] Allergy (Intermediate, Verified 09/14/23 08:40) NAUSEA/DIZZINESS/SEVERE BACK PAIN, dyspnea varenicline Allergy (Intermediate, Verified 09/14/23 08:40) Unknown simvastatin Adverse Reaction (Intermediate, Verified 09/14/23 08:40) weird dreams Tobacco use date assessed: 09/14/23 Dental Screening Dental Screen Date: 09/14/23 Did you have a dental visit in the last 12 months?: No Did you have a dental problem in the last 6 months where you did not have access to dental care?: No Was dental information given to patient?: No HPI Cholesterol HPI Details 57-year-old overweight female with a history of hypercholesterolemia impaired glucose tolerance GERD asthma generalized anxiety disorder coming in for follow-up. Last seen in May 2023. Mammogram is due colonoscopy is up-to-date. Patient has complained of neck pain and an x-ray was done showing moderate to severe lower cervical spondylosis and trace anterolisthesis of the C4-C5 and trace retrolisthesis C5 on C6. This was done in May 2023. stomach ahe yesterday- ate burger. on atorvastatin - noproblem [facility] Medical History (Updated 09/14/23 @ 09:07 by Graciela Velez MD) Breast cancer screening by mammogram Flank pain Panic anxiety syndrome COVID-19 virus infection TSH elevation Cervical radiculopathy Counseling and coordination of care Stress at work Nausea Chronic vertigo Elbow pain, left Obesity (BMI 30-39.9) Tear of left acetabular labrum Lumbar disc herniation Carpal tunnel syndrome Pulmonary nodule Dilated aortic root Asthma GERD (gastroesophageal reflux disease) Impaired glucose tolerance Hypercholesterolemia Allergic rhinitis Surgical History History of endometrial ablation History of tubal ligation Family History Father Emphysema of lung Mother Anxiety Diabetes Maternal Grandmother Breast cancer Son In good health Family/Other Anxiety Chronic mental illness Other Mental health problem Social History Housing: Apartment Alcohol intake: current Patient Tobacco Use Status: Former Tobacco user Tobacco use type: Cigarette Years Smoked: smokes pot. quit 02/12/2017 e-Cigarette/Vaping Use: Never Used Second Hand Smoke Exposure: Yes service: No Current occupational status: employed Cognitive needs: No Hearing needs: No Vision needs: No Questionnaire PHQ-9 Over the last 2 weeks, how often have you been bothered by any of the following problems? 1. Little interest or pleasure in doing things: not at all 2. Feeling down, depressed, or hopeless: not at all 3. Trouble falling or staying asleep, or sleeping too much: not at all 4. Feeling tired or having little energy: not at all 5. Poor appetite or overeating: not at all 6. Feeling bad about yourself - or that you are a failure or have let yourself or your family down: not at all 7. Trouble concentrating on things, such as reading the newspaper or watching television: not at all 8. Moving or speaking so slowly that other people could have noticed. Or the opposite - being so fidgety or restless that you have been moving around a lot more than usual: not at all 9. Thoughts that you would be better off or of hurting yourself in some way: not at all Total score: 0 Depression Screening Interpretation: Negative Depression Screening Done: Yes Source: Developed by Drs. Colby Cifuentes, Rosa Isela Campbell, Km Martin and colleagues, with an educational estefany from [employer]. Thrive Questionnaire Date Thrive assessed: 09/14/23 I am a: Patient What is your living situation today?: I have a steady place to live Within the past 12 months, did the food you bought not last and you didn't have the money to get more?: Never true Within the past 12 months, did you worry whether your food would run out before you got money to buy more?: Never true Do you have trouble paying for medicines?: No Do you have trouble getting transportation to medical appointments?: No Do you have trouble paying your heating and electricity bill?: No Do you have trouble taking care of your child, family member or friend?: No Do you have trouble with day-to-day activities such as bathing, preparing meals, shopping, managing finances, etc.?: No Are you currently unemployed and looking for a job?: No Are you interested in more education?: No Currently or been in a relationship where the following occur: no concerns reported THRIVE Score: 0 AUDIT C Alcohol Use Questionnaire (AUDIT-C) 1. How often do you have a drink containing alcohol?: Never Total Score: 0 ERIC-7 AMB Questionnaire ERIC-7 Date ERIC - 7 assessed: 09/14/23 Feeling nervous, anxious, or on edge: 0 = Not at all Not being able to stop or control worryin = Not at all Worrying too much about different things: 0 = Not at all Trouble relaxin = Not at all Being so restless that it is hard to sit still: 0 = Not at all Becoming easily annoyed or irritable: 0 = Not at all Feeling afraid as if something awful might happen: 0 = Not at all Total ERIC-7 score (0-4 normal; 5-9 mild; 10-14 moderate; 15-21 severe): 0 Source: Developed by Drs. Colby Cifuentes, Rosa Isela Campbell, Km Martin and colleagues, with an educational estefany from [employer]. Physical exam (Primary Care) Vital Signs: Last Vital Signs Pulse 88 09/14/23 08:40 BP 130/78 09/14/23 08:40 Pulse Ox 98 09/14/23 08:40 Oxygen Delivery Method Room Air 09/14/23 08:40 BMI result Body Mass Index 27.0 Tobacco/Smoking Status: Tobacco use Status Tobacco use date assessed 09/14/23 09/14/23 08:47 Patient Tobacco Use Status Former Tobacco user 09/14/23 08:47 Tobacco use type Cigarette 09/14/23 08:47 e-Cigarette/Vaping Use Never Used 09/14/23 08:47 PHQ-9: PHQ-9 Score PHQ-9: Total score 0 09/14/23 09:09 Depression Screening Interpretation: Negative Thrive Assessment: Date of Thrive Assessment Date Thrive assessed 09/14/23 09/14/23 08:47 Currently or been in a relationship where the following occur: no concerns reported Const General: alert; No acute distress Eyes Conjunctivae: conjunctivae normal Resp Auscultation: clear to auscultation bilaterally Cardio Rate: regular rate Rhythm: regular rhythm GI Inspection: Yes normal to inspection Extrem General: Yes normal to inspection and No edema Assessment and Plan Assessment & Plan (1) Impaired glucose tolerance: Code(s): R73.02 - Impaired glucose tolerance (oral) Plan: Decrease the amount of carbohydrate intake, pasta, bread, rice and potatoes are all sugar and that is aside from all the sweet stuff, remember that fruits are good but they are Sweet also. (2) Hypercholesterolemia: Code(s): E78.00 - Pure hypercholesterolemia, unspecified Plan: Avoid fried foods, chicken skin, eggs, butter margarine, pastries and meat. Be it pork or beef they have a lot of cholesterol LDL goal of less than 130 and triglyceride of less than 150. (3) GERD (gastroesophageal reflux disease): Code(s): K21.9 - Gastro-esophageal reflux disease without esophagitis Plan: Avoid the foods that causes that usually spicy foods, tomato products, juices, coffee, soda and foods that your sensitive to. After eating do not lie down, allow 3-4 hours before in lie down. And keep the head of bed above 30 degrees to avoid the acid from going up. (4) Asthma: Code(s): J45.909 - Unspecified asthma, uncomplicated Plan: Stable (5) Generalized anxiety disorder: Comment: [facility] Code(s): F41.1 - Generalized anxiety disorder Plan: Continue with present medication. (6) Breast cancer screening by mammogram: Code(s): Z12.31 - Encounter for screening mammogram for malignant neoplasm of breast Plan: Patient is reminded about the mammogram (7) Cervical spondylosis: Code(s): M47.812 - Spondylosis without myelopathy or radiculopathy, cervical region Plan: Keep active. Orders: Orders Complete Blood Count Auto Diff 3 Months R73.02 - Impaired glucose tolerance (oral) Vitamin B12 and Folate 3 Months R73.02 - Impaired glucose tolerance (oral) Vitamin D 25-OH Total 3 Months R73.02 - Impaired glucose tolerance (oral) Lipid Panel 3 Months E78.00 - Pure hypercholesterolemia, unspecified, R73.02 - Impaired glucose tolerance (oral) Hemoglobin A1c 3 Months R73.02 - Impaired glucose tolerance (oral) MM tomosynthesis screening BI Today Z12.31 - Encounter for screening mammogram for malignant neoplasm of breast MR cervical spine wo con Today M47.812 - Spondylosis without myelopathy or radiculopathy, cervical region PT Evaluation and Treatment Today M47.812 - Spondylosis without myelopathy or radiculopathy, cervical region Comprehensive Met. Panel 3 Months R73.02 - Impaired glucose tolerance (oral) Free T4 (Free Thyroxine) 3 Months R73.02 - Impaired glucose tolerance (oral) Thyroid Stimulating Hormone 3 Months R73.02 - Impaired glucose tolerance (oral) Coding Level of Care Code Est Pt Level 4 (18058) Diagnoses Impaired glucose tolerance R73.02 Hypercholesterolemia E78.00 GERD (gastroesophageal reflux disease) K21.9 Asthma J45.909 Generalized anxiety disorder F41.1 Breast cancer screening by mammogram Z12.31 Cervical spondylosis M47.812
== END 2023-09-14 09:21 | disposition home or self-care (01) ==
PROVIDERS: PCP Internal Medicine; Visit Provider Internal Medicine
DX: R73.02 Impaired glucose tolerance (oral) (principal); E78.00 Pure hypercholesterolemia, unspecified; K21.9 Gastro-esophageal reflux disease without esophagitis; J45.909 Unspecified asthma, uncomplicated; F41.1 Generalized anxiety disorder; Z12.31 Encounter for screening mammogram for malignant neoplasm of breast; M47.812 Spondylosis without myelopathy or radiculopathy, cervical region
CPT/HCPCS: 99214

== ENCOUNTER 2023-10-16 07:27 | Outpatient (REF) | payer OTHER, SELFPAY | END 2023-10-16 07:28 | disposition home or self-care (01) | LOC: HO.MAMMO 07:27 | PROVIDERS: PCP Internal Medicine; Visit Provider Internal Medicine | DX: Z12.31 Encounter for screening mammogram for malignant neoplasm of breast (principal) | CPT/HCPCS: 77063; 77067 ==

== ENCOUNTER → 2023-10-16 07:45 | Outpatient (BNV) | payer OTHER, SELFPAY | PROVIDERS: PCP Internal Medicine; Visit Provider Radiology Diagnostic Radiology | DX: Z12.31 Encounter for screening mammogram for malignant neoplasm of breast (principal) | CPT/HCPCS: 77063; 77067 ==

== ENCOUNTER 2023-10-20 13:25 | Outpatient (REF) | payer OTHER, SELFPAY ==
--- NOTE | ~2023-10-20 | XR_ITS ---
EXAMINATION: XR SHOULDER, LEFT CLINICAL INFORMATION: Chronic left shoulder pain COMPARISON: Left shoulder radiograph from 06/05/2009 TECHNIQUE: 5 views of the left shoulder. FINDINGS: No acute visible fracture or dislocation. Degenerative arthropathy of the glenohumeral and acromioclavicular joint with spurring along the inferior medial aspect of the proximal humeral metadiaphysis. Joint space alignment are otherwise maintained. Soft tissues are unremarkable. Visualized portions of the chest are unremarkable. XR/XR shoulder LT min 2V IMPRESSION: 1. No acute visible fracture or dislocation. 2. Degenerative arthropathy of the glenohumeral and acromioclavicular joint with spurring along the inferior medial aspect of the proximal humeral metadiaphysis.
== END 2023-10-20 13:26 | disposition home or self-care (01) ==
LOC: HO.XRAY 13:25
PROVIDERS: PCP Internal Medicine; Visit Provider Physical Medicine & Rehabilitation
DX: M25.512 Pain in left shoulder (principal)
CPT/HCPCS: 73030

== ENCOUNTER 2023-12-02 07:03 | Outpatient (REF) | payer OTHER, SELFPAY ==
[2023-12-02 07:16] LABS: MANUAL DIFF FLAG NO
[2023-12-02 07:41] LABS: Basophils Percent Auto 0.3 % (0-2); Eosinophils Absolute Auto 0.1 X10*3/uL (0.0-0.4); Eosinophils Percent Auto 2.1 % (0-4); Hematocrit 41.1 % (37.0-47.0); Hemoglobin 14.2 g/dl (12.0-16.0); Imm Gran Abs Auto 0.02 X10*3/uL (0.00-0.03); Imm Gran Pct Auto 0.3 % (0.0-0.4); Lymphocytes Absolute Auto 2.3 X10*3/uL (1.2-4.9); Lymphocytes Percent Auto 34.1 % (20-40); Mean Corpuscular HGB Conc 34.5 g/dl (31.0-35.0); Mean Corpuscular Hemoglobin 33.6 pg (27.0-33.0); Mean Corpuscular Volume 97.4 fL (80.0-98.0); Mean Platelet Volume 9.2 fL (9.4-12.3); Monocytes Absolute Auto 0.3 X10*3/uL (0.1-1.2); Monocytes Percent Auto 5.2 % (2-11); Neutrophils Absolute Auto 3.8 x10*3/uL (2.0-8.3); Platelet Count 307 X10*3/uL (160-400); Red Blood Count 4.22 X10*6/uL (4.20-5.50); Red Cell Distribution Width 12.9 % (11.0-16.0); White Blood Count 6.6 X10*3/uL (4.8-10.8)
[2023-12-02 07:50] LABS: Estimated Average Glucose 103 mg/dL; Hemoglobin A1c % 5.2 % (<6.0)
[2023-12-02 08:15] LABS: Alanine Aminotransferase 10 U/L (0-31); Albumin Level 4.3 g/dL (3.5-5.0); Alkaline Phosphatase 60 U/L (39-117); Anion Gap 11 (12-20); Aspartate Amino Transferase 16 U/L (5-31); Bilirubin Total 0.3 mg/dL (0.0-1.0); Blood Urea Nitrogen 13 mg/dL (9-16); Calcium 9.3 mg/dL (8.4-10.2); Carbon Dioxide 28 mmol/L (22-29); Chloride 108 mmol/L (96-108); Cholesterol 183 mg/dL (<200); Estimated Glomerular Filt Rate > 60; Glucose Random 94 mg/dL (60-115); HDL Cholesterol 54 mg/dL (>40); LDL Cholesterol Calculated 101 mg/dL (<100); Potassium 4.8 mmol/L (3.3-5.1); Sodium 142 mmol/L (135-145); Total Protein 7.1 g/dL (6.5-8.0); Triglycerides 140 mg/dL (<150)
[2023-12-02 08:29] LABS: Free T4 (Free Thyroxine) 0.73 ng/dL (0.71-1.85); Thyroid Stimulating Hormone 4.35 uIU/mL (0.32-4.0)
[2023-12-02 08:39] LABS: Vitamin B12 392 pg/mL (200-900)
== END 2023-12-02 07:04 | disposition home or self-care (01) ==
LOC: HO.LAB 07:03
PROVIDERS: PCP Internal Medicine; Visit Provider Internal Medicine
DX: R73.02 Impaired glucose tolerance (oral) (principal); E78.00 Pure hypercholesterolemia, unspecified
CPT/HCPCS: 36415; 80053; 80061; 82306; 82607; 82746; 83036; 84439; 84443; 85025

== ENCOUNTER 2023-12-04 15:58 | Outpatient (AMB) | payer OTHER, SELFPAY ==
--- NOTE | 2023-12-04 16:03 | A.OFFPC_ITS ---
Vital Signs 12/04/23 16:07 Height 5 ft 6 in Weight 167 lb BMI 27.0 BP 106/62 Blood Pressure Location Lt brachial Position Sitting Pulse 71 Pulse Source Pulse Oximeter Pulse Oximetry (%) 98 Oxygen Delivery Method Room Air Intake Visit Reasons: Annual Exam Allergies barium sulfate Allergy (Intermediate, Verified 12/04/23 16:08) hypertension carisoprodol [CARISOPRODOL] Allergy (Intermediate, Verified 12/04/23 16:08) DIFFICULTY BREATHING Sulfa (Sulfonamide Antibiotics) [SULFA (SULFONAMIDE ANTIBIOTICS)] Allergy (Intermediate, Verified 12/04/23 16:08) NAUSEA/DIZZINESS/SEVERE BACK PAIN, dyspnea varenicline Allergy (Intermediate, Verified 12/04/23 16:08) Unknown simvastatin Adverse Reaction (Intermediate, Verified 12/04/23 16:08) weird dreams Medication List - Last Reconciled 12/04/23 by Graciela Velez MD alprazolam 0.5 mg PO BID 30 days atorvastatin 10 mg PO DAILY fluoxetine 40 mg PO DAILY 90 days loratadine 10 mg PO DAILY meloxicam 15 mg PO DAILY omeprazole 40 mg PO DAILY 90 days ondansetron HCl 8 mg PO Q12H PRN 21 days semaglutide (weight loss) 1.7 mg (0.75 mL) subcut QWEEK 90 days Tobacco use date assessed: 09/14/23 Dental Screening Dental Screen Date: 09/14/23 HPI Annual Exam HPI Details 58-year-old overweight female with a his tory of impaired glucose tolerance hypercholesterolemia GERD asthma generalized anxiety disorder having a physical exam today last seen 08/2023 mammogram is up-to-date colonoscopy is up-to-date October 2018, review of the notes has been seen by [facility] for the neck pain September 2023 patient was given a prescription for meloxicam [facility] Medical History (Updated 12/04/23 @ 16:37 by Graciela eVlez MD) Breast cancer screening by mammogram Flank pain Panic anxiety syndrome COVID-19 virus infection TSH elevation Cervical radiculopathy Counseling and coordination of care Stress at work Nausea Chronic vertigo Elbow pain, left Obesity (BMI 30-39.9) Tear of left acetabular labrum Lumbar disc herniation Carpal tunnel syndrome Pulmonary nodule Dilated aortic root Asthma GERD (gastroesophageal reflux disease) Impaired glucose tolerance Hypercholesterolemia Allergic rhinitis Surgical History History of endometrial ablation History of tubal ligation Family History Father Emphysema of lung Mother Anxiety Diabetes Maternal Grandmother Breast cancer Son In good health Family/Other Anxiety Chronic mental illness Other Mental health problem Social History (Updated 12/04/23 @ 16:35 by Graciela Velez MD) Housing: Apartment Alcohol intake: current Comment: once q 6 months beer Patient Tobacco Use Status: Former Tobacco user Tobacco use type: Cigarette Years Smoked: smokes pot. quit 02/12/2017 e-Cigarette/Vaping Use: Never Used Second Hand Smoke Exposure: Yes service: No Current occupational status: employed Cognitive needs: No Hearing needs: No Vision needs: No Questionnaire PHQ-9 Over the last 2 weeks, how often have you been bothered by any of the following problems? 1. Little interest or pleasure in doing things: not at all 2. Feeling down, depressed, or hopeless: not at all 3. Trouble falling or staying asleep, or sleeping too much: not at all 4. Feeling tired or having little energy: not at all 5. Poor appetite or overeating: not at all 6. Feeling bad about yourself - or that you are a failure or have let yourself or your family down: not at all 7. Trouble concentrating on things, such as reading the newspaper or watching television: not at all 8. Moving or speaking so slowly that other people could have noticed. Or the opposite - being so fidgety or restless that you have been moving around a lot more than usual: not at all 9. Thoughts that you would be better off or of hurting yourself in some way: not at all Total score: 0 Depression Screening Interpretation: Negative Depression Screening Done: Yes Source: Developed by Drs. Colby Cifuentes, Rosa Isela Campbell, Km Martin and colleagues, with an educational estefany from [employer]. Thrive Questionnaire Date Thrive assessed: 09/14/23 AUDIT C Alcohol Use Questionnaire (AUDIT-C) 1. How often do you have a drink containing alcohol?: Never Total Score: 0 ERIC-7 AMB Questionnaire ERIC-7 Date ERIC - 7 assessed: 09/14/23 Source: Developed by Drs. Colby Cifuentes, Rosa Isela Campbell, Km Martin and colleagues, with an educational estefany from [employer]. Review of Systems Const Denies poor appetite and Denies weakness Eyes Denies no additional complaints ENT Reports Normal hearing present, Denies dizziness, Denies nasal congestion, Denies tinnitus and Denies sore throat Card Denies chest pain, Denies syncope, Denies rapid heart rate and Denies dyspnea Resp Denies cough and Denies dyspnea GI Denies change in stool character, Reports constipation, Denies diarrhea, Denies nausea and Denies vomiting Denies urinary frequency, Denies difficulty voiding and Denies dysuria Neuro Reports Normal hearing present, Denies confusion, Denies dizziness, Denies syncope and Denies weakness Psych Denies confusion Physical exam (Primary Care) Vital Signs: Last Vital Signs Pulse 71 12/04/23 16:07 BP 106/62 12/04/23 16:07 Pulse Ox 98 12/04/23 16:07 Oxygen Delivery Method Room Air 12/04/23 16:07 BMI result Body Mass Index 27.0 Tobacco/Smoking Status: Tobacco use Status Tobacco use date assessed 09/14/23 12/04/23 16:05 Patient Tobacco Use Status Former Tobacco user 12/04/23 16:35 Tobacco use type Cigarette 12/04/23 16:35 e-Cigarette/Vaping Use Never Used 12/04/23 16:35 PHQ-9: PHQ-9 Score PHQ-9: Total score 0 12/04/23 16:27 Depression Screening Interpretation: Negative Thrive Assessment: Date of Thrive Assessment Date Thrive assessed 09/14/23 12/04/23 16:05 Const General: No confusion Orientation/consciousness: No confusion HENMT Head: Yes normocephalic Ears: external ears normal and TM's normal bilaterally Face and sinus: Yes normal facial exam Mouth: moist mucous membranes Throat: Yes tonsils normal Eyes Conjunctivae: conjunctivae normal Pupils: Equal, round and reactive pupils present and Pupil accommodation reflex normal Direct Ophthalmoscopy: normal light reflex Neck Neck: No lymphadenopathy Thyroid: Thyroid normal Chest Chest palpation & inspection: normal inspection of the chest Resp Effort & Inspection: normal respiratory effort and no audible wheezes Auscultation: clear to auscultation bilaterally, no crackles, no wheezes and lung sounds not diminished Cardio Rate: regular rate Rhythm: regular rhythm Peripheral pulses: radial pulses present and dorsalis pedis present GI Other: decline Palpation (GI): no masses Auscultation: normal bowel sounds and normoactive bowel sounds Rectal Exam - Female: deferred Skin General skin exam: no rashes or lesions noted Rashes: no rashes Neuro General: No confusion Cranial nerves: Yes Equal, round and reactive pupils present and Yes Normal hearing present Cognition (Neuro): normal cognition Gait exam (Neuro): Normal gait present Motor exam (neuro): 5/5 motor strength present throughout Deep tendon reflexes (DTR's): Right brachioradialis reflex intensity grade: 2+, Left brachioradialis reflex intensity grade: 2+, Right patellar reflex intensity grade: 2+ and Left patellar reflex intensity grade: 2+ Extrem General: No edema Immunizations tetanus-diphtheria toxoids-Td 2 Lf unit-2 Lf unit/0.5 mL IM suspension Performing Provider: Graciela Velez MD [facility] Administered by: REED Shea on 12/04/23 16:54 Dose Route Admin Location Dispensed Lot Number Expiration Date NDC Plaster Model [employer] 0.5 mL IM Right Deltoid 0.5 mL [id number] 07/08/24 [id number] [employer] VIS Given Date VIS Provided VIS Publication Date 12/04/23 Single Vaccine 21 Eligibility Eligibility Date Funding Source Not VFC Eligible 12/04/23 State [facility] Assessment and Plan Assessment & Plan (1) Annual physical exam: Code(s): Z00.00 - Encounter for general adult medical examination without abnormal findings Plan: Patient is advised to eat healthy, keep well hydrated, keep active and have adequate sleep. (2) Hypercholesterolemia: Code(s): E78.00 - Pure hypercholesterolemia, unspecified Plan: Avoid fried foods, chicken skin, eggs, butter margarine, pastries and meat. Be it pork or beef they have a lot of cholesterol LDL goal of less than 130 and triglyceride of less than 150 on atorvastatin 10 mg once a day (3) Impaired glucose tolerance: Code(s): R73.02 - Impaired glucose tolerance (oral) Plan: Decrease the amount of carbohydrate intake, pasta, bread, rice and potatoes are all sugar and that is aside from all the sweet stuff, remember that fruits are good but they are Sweet also. (4) GERD (gastroesophageal reflux disease): Code(s): K21.9 - Gastro-esophageal reflux disease without esophagitis Plan: Avoid the foods that causes that usually spicy foods, tomato products, juices, coffee, soda and foods that your sensitive to. After eating do not lie down, allow 3-4 hours before in lie down. And keep the head of bed above 30 degrees to avoid the acid from going up. On omeprazole 40 mg once a (5) Asthma: Code(s): J45.909 - Unspecified asthma, uncomplicated Plan: Stable (6) Dilated aortic root: Comment: Ascending aorta dilatation 4.0 12/30/2016, 4.28 October 2018, February 2020 4.2 cm, September 2019 to 4.2 cm April 2022 4.3 cm Code(s): I77.810 - Thoracic aortic ectasia Plan: Patient was advised to have echocardiogram. (7) Generalized anxiety disorder: Comment: [facility] counselling Code(s): F41.1 - Generalized anxiety disorder Plan: Continue with counseling and therapy (8) Eczema: Code(s): L30.9 - Dermatitis, unspecified Orders: Orders CA echo transthoracic complete Today I77.810 - Thoracic aortic ectasia Td State Immunization Today Z23 - Encounter for immunization Referrals Dermatology Referral L30.9 - Dermatitis, unspecified Medications: New fexofenadine (Allergy Relief (fexofenadine)) 180 mg PO DAILY 90 tabs 1RF Changed From semaglutide (weight loss) 1.7 mg (0.75 mL) subcut QWEEK 90 days 12 ea 3RF E66.9 - Obesity, unspecified To semaglutide (weight loss) 1 mg (0.5 mL) subcut QWEEK 90 days 12 ea 1RF E66.9 - Obesity, unspecified Refilled ondansetron HCl 8 mg PO Q12H 21 days PRN 9 tabs 0RF nausea and vomiting H93.19 - Tinnitus, unspecified ear Coding Level of Care Code Est Pt Prev Care 40-64y(71645) Diagnoses Annual physical exam Z00.00 Hypercholesterolemia E78.00 Impaired glucose tolerance R73.02 GERD (gastroesophageal reflux disease) K21.9 Asthma J45.909 Dilated aortic root I77.810 Generalized anxiety disorder F41.1 Eczema L30.9
[2023-12-04 16:07] VITALS: BP 106/62; PULSE 71; O2SAT 98; BMI 27.0
== END 2023-12-04 17:01 | disposition home or self-care (01) ==
PROVIDERS: PCP Internal Medicine; Visit Provider Internal Medicine
DX: Z00.00 Encounter for general adult medical examination without abnormal findings (principal); E78.00 Pure hypercholesterolemia, unspecified; R73.02 Impaired glucose tolerance (oral); K21.9 Gastro-esophageal reflux disease without esophagitis; J45.909 Unspecified asthma, uncomplicated; I77.810 Thoracic aortic ectasia; F41.1 Generalized anxiety disorder; L30.9 Dermatitis, unspecified; Z23 Encounter for immunization
CPT/HCPCS: 90471; 90714; 99396

== ENCOUNTER → 2024-01-05 14:47 | Outpatient (REF) | payer OTHER, SELFPAY ==
--- NOTE | 2024-01-05 14:50 | CA_ITS ---
Transthoracic Echocardiogram Patient (Last, First, Middle): Barbara Casarez M Gender: Female Date of : 1965 Age: 58 Procedure Date: 01/05/2024 Procedure Type: Transthoracic Echocardiogram Location: OP Height: 167. cm Weight: 71.22 kg BSA: 1.80 m2 Heart Rate: 70 bpm BP: 110 / 65 mmHg Study Lead: BALTAZAR Referring MD: Graciela Velez MD Door Closer: Judd Jalloh MD Symptoms: I77.810 - Thoracic aortic ectasia Study Quality: Adequate ECG Rhythm: Sinus Conclusions: - 1. Normal LV ejection fraction of 65-70% 2. Calcific aortic valve changes noted with anatomy not entirely clear with mild aortic regurgitation 3. Mildly dilated left atrium 4. Mildly dilated ascending aorta at 4.3 cm 5. Normal RV systolic pressure 6. No pericardial effusion Findings Left Ventricle Normal left ventricular size, thickness, and systolic function. The visually estimated ejection fraction is between 65-70%. Spectral Doppler is indicative of a normal filling pattern. Right Ventricle Normal right ventricular cavity size and systolic function. Atria The left atrium is mildly dilated. There is no evidence of interatrial shunt. The right atrium is normal in size. Aortic Valve There is no aortic valve stenosis. There is mild aortic valve regurgitation. mildly thickened and calcific aortic valve, question bicuspid valve Mitral Valve Normal mitral valve structure and function. There is trace mitral valve regurgitation. There is no mitral valve stenosis. Pulmonic Valve The pulmonic valve is likely normal. Tricuspid Valve Normal tricuspid valve structure. There is trace tricuspid valve regurgitation. The right ventricular systolic pressure is normal. The right ventricular systolic pressure is 14 mmHg. Normal right atrial pressure. There is no evidence of pulmonary hypertension. Great Vessels The pulmonary artery was not well visualized. There is mild dilatation of the ascending aorta measuring 4.30 cm. Venous The inferior vena cava is normal in size and collapses greater than 50% with inspiration. Pericardium/Pleural There is no evidence of pericardial effusion. Recommendations, Care & Conclusions Consider a SHELLI if clinically appropriate. Measurements 2D Linear Measurements IVSd: 0.98 0.6-0.9/0.6-1.0 cm LVIDd: 4.73 3.9-5.3/4.2-5.9 cm LVIDd Index: 2.63 2.4-3.2/2.2-3.1 cm/m2 LVIDs: 2.92 2.0-3.6 cm LVPWd: 0.90 0.7-1.1 cm LA Diam: 3.30 2.7-3.8/3.0-4.0 cm LAIDs Index: 1.83 1.5-2.3 cm/m2 LV Mass: 190.98 67-162/88-224 g LV Mass Index: 106.10 43-95/49-115 g/m2 LVOT Diam: 2.00 3.0+(-)1.3 cm 2D Systolic Function EF 4C: 65.60 >55% EF 2C: 70.30 >55% EF BiP: 67.90 >55% Mitral Valve MV Pk E: 0.95 MV PK A: 0.97 MV Decel Time: 246.00 E/A: 1.00 E'Lateral: 11.40 E'Medial: 7.29 E/E' Med: 13.00 E/E' Lat: 8.30 PHT: 72.00 MVA PHT: 3.06 Decel [place]: 3.85 Aortic Valve AoV Pk Pedrito: 1.40 AoV Mn Pedrito: 1.01 AoV VTI: 0.30 AoV Pk Grad: 8.00 Aov Mn Grad: 5.00 ALEX Cont.VTI: 2.86 AI Pk Pedrito: 3.54 AI [place]: 2.04 LVOT LVOT Pk Pedrito: 1.26 LVOT Mn Pedrito: 0.88 LVOT VTI: 0.28 LVOT Pk Grad: 6.00 LVOT Mn Grad: 4.00 LVOT Diam: 2.00 LVOT Area: 3.14 Diastolic Function MV Pk E: 0.95 MV Pk A: 0.97 E/A: 1.00 E'Medial: 7.29 E/E' Med: 13.00 E' Laterial: 11.40 E/E' Lat: 8.30 Right Ventricle TAPSE (mm): 21.20 TVS' Pedrito: 10.60 Tricuspid Valve TR Pk Pedrito: 1.69 TR Pk Grad: 11.00 RA Press: 3.00 RVSP: 14.00 Great Vessels Aorta Sinus of Valsalva: 3.70 2.0-3.5 cm Ao Asc: 4.30 2.1-3.4 cm Ao Arch: 3.20 Pulmonary Valve PV Pk Pedrito: 1.06 Peak PV Grad: 4.00 Updated in Other Vendor System with Status of Final Judd Jalloh MD electronically signed on 01/06/2024 2:13:36 PM with status of Final
== END ==
LOC: HO.CARD 14:47
PROVIDERS: PCP Internal Medicine; Visit Provider Internal Medicine
DX: I77.810 Thoracic aortic ectasia (principal)
CPT/HCPCS: 93306

== ENCOUNTER → 2024-01-05 14:50 | Outpatient (BNV) | payer OTHER, SELFPAY | PROVIDERS: PCP Internal Medicine; Visit Provider Internal Medicine Cardiovascular Disease | DX: I35.1 Nonrheumatic aortic (valve) insufficiency (principal) | CPT/HCPCS: 93306 ==

== ENCOUNTER 2024-04-02 13:25 | Outpatient (AMB) | payer OTHER, SELFPAY ==
[2024-04-02 13:31] VITALS: BP 122/82; PULSE 64; O2SAT 95; BMI 27.7
--- NOTE | 2024-04-02 13:31 | A.OFFPC_ITS ---
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: No Accompanied by: Self / Same As Patient Allergies barium sulfate Allergy (Intermediate, Verified 04/02/24 13:54) hypertension carisoprodol [CARISOPRODOL] Allergy (Intermediate, Verified 04/02/24 13:54) DIFFICULTY BREATHING Sulfa (Sulfonamide Antibiotics) [SULFA (SULFONAMIDE ANTIBIOTICS)] Allergy (Intermediate, Verified 04/02/24 13:54) NAUSEA/DIZZINESS/SEVERE BACK PAIN, dyspnea varenicline Allergy (Intermediate, Verified 04/02/24 13:54) Unknown simvastatin Adverse Reaction (Intermediate, Verified 04/02/24 13:54) weird dreams Medication List - Last Reconciled 04/02/24 by Tha Katz MD alprazolam 0.5 mg PO BID 30 days atorvastatin 10 mg PO DAILY fexofenadine (Allergy Relief (fexofenadine)) 180 mg PO DAILY fluoxetine 40 mg PO DAILY 90 days loratadine 10 mg PO DAILY meloxicam 15 mg PO DAILY omeprazole 40 mg PO DAILY 90 days ondansetron HCl 8 mg PO Q12H PRN 21 days Tobacco use date assessed: 04/02/24 Dental Screening Dental Screen Date: 04/02/24 Did you have a dental visit in the last 12 months?: No Did you have a dental problem in the last 6 months where you did not have access to dental care?: No Was dental information given to patient?: Patient has dentist HPI Meds follow up HPI Details Patient comes in today for her follow up visit - I am seeing patient today for Dr. Velez Patient states that she is mainly here for her routine 3 months' follow up visit so she can get her Alprazolam Rx refilled Per her previous agreement with her PCP, she has to be seen regularly every 3 months so her Alprazolam will continue to be refilled States that she overslept and missed her last appointment on 03/11/2024 and today was the earliest appointment that she could get on short notice States that she currently feels okay She denies any headaches or dizziness Denies any chest pains, no SOB No nausea/vomiting, no abdominal pain No change in bowel habits noted Adds that she is now finished with Wegovy for weight loss and last took it a few months ago She is now wondering if she can try Zepbound instead to lose weight - states that she has gained back some weight since she stopped taking Wegovy [facility] Medical History Breast cancer screening by mammogram Flank pain Panic anxiety syndrome COVID-19 virus infection TSH elevation Cervical radiculopathy Counseling and coordination of care Stress at work Nausea Chronic vertigo Elbow pain, left Obesity (BMI 30-39.9) Tear of left acetabular labrum Lumbar disc herniation Carpal tunnel syndrome Pulmonary nodule Dilated aortic root Asthma GERD (gastroesophageal reflux disease) Impaired glucose tolerance Hypercholesterolemia Allergic rhinitis Surgical History History of endometrial ablation History of tubal ligation Family History Father Emphysema of lung Mother Anxiety Diabetes Maternal Grandmother Breast cancer Son In good health Family/Other Anxiety Chronic mental illness Other Mental health problem Social History Housing: Apartment Alcohol intake: current Comment: once q 6 months beer Patient Tobacco Use Status: Former Tobacco user Tobacco use type: Cigarette Years Smoked: smokes pot. quit 02/12/2017 e-Cigarette/Vaping Use: Never Used Second Hand Smoke Exposure: Yes service: No Current occupational status: employed Cognitive needs: No Hearing needs: No Vision needs: No Questionnaire PHQ-9 Over the last 2 weeks, how often have you been bothered by any of the following problems? 1. Little interest or pleasure in doing things: not at all 2. Feeling down, depressed, or hopeless: not at all 3. Trouble falling or staying asleep, or sleeping too much: not at all 4. Feeling tired or having little energy: not at all 5. Poor appetite or overeating: not at all 6. Feeling bad about yourself - or that you are a failure or have let yourself or your family down: not at all 7. Trouble concentrating on things, such as reading the newspaper or watching television: not at all 8. Moving or speaking so slowly that other people could have noticed. Or the opposite - being so fidgety or restless that you have been moving around a lot more than usual: not at all 9. Thoughts that you would be better off or of hurting yourself in some way: not at all Total score: 0 Depression Screening Interpretation: Negative Depression Screening Done: Yes 35105 - PHQ-9 Billing: Yes Source: Developed by Drs. Colby Cifuentes, Rosa Isela Campbell, Km Martin and colleagues, with an educational estefany from [employer]. Thrive Questionnaire Date Thrive assessed: 04/02/24 I am a: Patient What is your living situation today?: I have a steady place to live Within the past 12 months, did the food you bought not last and you didn't have the money to get more?: Never true Within the past 12 months, did you worry whether your food would run out before you got money to buy more?: Never true Do you have trouble paying for medicines?: No Do you have trouble getting transportation to medical appointments?: No Do you have trouble paying your heating and electricity bill?: No Do you have trouble taking care of your child, family member or friend?: No Do you have trouble with day-to-day activities such as bathing, preparing meals, shopping, managing finances, etc.?: No Are you currently unemployed and looking for a job?: No Are you interested in more education?: No Please select the resources that you would like help with: None Currently or been in a relationship where the following occur: No concerns reported THRIVE Score: 0 AUDIT C Alcohol Use Questionnaire (AUDIT-C) 1. How often do you have a drink containing alcohol?: Never Total Score: 0 Score Reviewed/Action Taken: Yes ERIC-7 AMB Questionnaire ERIC-7 Date ERIC - 7 assessed: 04/02/24 Feeling nervous, anxious, or on edge: 0 = Not at all Not being able to stop or control worryin = Not at all Worrying too much about different things: 0 = Not at all Trouble relaxin = Not at all Being so restless that it is hard to sit still: 0 = Not at all Becoming easily annoyed or irritable: 0 = Not at all Feeling afraid as if something awful might happen: 0 = Not at all Total ERIC-7 score (0-4 normal; 5-9 mild; 10-14 moderate; 15-21 severe): 0 Source: Developed by Drs. Colby Cifuentes, Rosa Isela Campbell, Km Martin and colleagues, with an educational estefany from [employer]. Review of Systems Const Denies chills, Denies fatigue, Denies fever(s) and Denies headache(s) ENT Denies dysphagia, Denies dizziness, Denies otalgia, Denies headache(s), Denies neck pain, Denies odynophagia and Denies sore throat Card Denies chest pain, Denies palpitations and Denies dyspnea Resp Denies chest congestion, Denies cough and Denies dyspnea GI Denies abdominal pain, Denies constipation, Denies dysphagia, Denies heartburn, Denies diarrhea, Denies nausea, Denies odynophagia and Denies vomiting Denies difficulty voiding, Denies nocturia, Denies dysuria and Denies urinary urgency Musc Denies back pain and Denies neck pain Skin/Breast Denies rash Neuro Denies dizziness and Denies headache(s) Psych Reports anxiety (controlled on current Rx) Endo Denies fatigue and Denies palpitations Physical exam (Primary Care) Vital Signs: Last Vital Signs Pulse 64 04/02/24 13:31 BP 122/82 04/02/24 13:31 Pulse Ox 95 04/02/24 13:31 Oxygen Delivery Method Room Air 04/02/24 13:31 BMI result Body Mass Index 27.7 Tobacco/Smoking Status: Tobacco use Status Tobacco use date assessed 04/02/24 04/02/24 13:35 Patient Tobacco Use Status Former Tobacco user 04/02/24 13:35 Tobacco use type Cigarette 04/02/24 13:35 e-Cigarette/Vaping Use Never Used 04/02/24 13:35 PHQ-9: PHQ-9 Score PHQ-9: Total score 0 04/02/24 13:36 Depression Screening Interpretation: Negative Thrive Assessment: Date of Thrive Assessment Date Thrive assessed 04/02/24 04/02/24 13:35 Currently or been in a relationship where the following occur: No concerns reported Const General: no acute distress and alert HENMT Throat: Yes posterior oropharynx normal and Yes tonsils normal (no TP congestion) Neck Neck: Yes no lymphadenopathy and Yes supple Thyroid: Thyroid normal Resp Auscultation: clear to auscultation bilaterally, no rales and no wheezes Cardio Rate: regular rate Rhythm: regular rhythm Heart sounds: no murmurs GI Palpation (GI): Soft to palpation and nontender Auscultation: normal bowel sounds General: Yes no CVA tenderness Back/Spine/Pelvis Back: no CVA tenderness Skin Rashes: no rashes Extrem General: Yes no clubbing, cyanosis or edema Coding Level of Care Code Est Pt Level 4 (28752) Diagnoses Hypercholesterolemia E78.00 Gastroesophageal reflux disease without esophagitis K21.9 Esophagitis presence: without esophagitis Generalized anxiety disorder F41.1 Overweight (BMI 25.0-29.9) E66.3 Additional Codes PHQ-9 - 73401 - PHQ-9 Billing: Yes ([id number]) Assessment & Plan Assessment & Plan (1) Hypercholesterolemia: Code(s): E78.00 - Pure hypercholesterolemia, unspecified Category: Medical Plan: Reinforced low cholesterol diet Continue Atorvastatin 10 mg QD (2) GERD (gastroesophageal reflux disease): Code(s): K21.9 - Gastro-esophageal reflux disease without esophagitis Category: Medical Qualifiers: Esophagitis presence: without esophagitis Qualified Code(s): K21.9 - Gastro-esophageal reflux disease without esophagitis Plan: Dietary restrictions reinforced in GERD Continue Omeprazole 40 mg QD (3) Generalized anxiety disorder: Comment: [facility] Code(s): F41.1 - Generalized anxiety disorder Category: Medical Plan: Continue Alprazolam 0.5 mg BID PRN (Rx refilled) and Fluoxetine 40 mg QD (4) Overweight (BMI 25.0-29.9): Code(s): E66.3 - Overweight Category: Medical Plan: Reinforced diet/exercise as tolerated/lose weight Per request, will now try her on Zepbound 2.5 mg SQ once a week to help her with her weight loss but advised that this may need a PA to be done Plan Follow up with PCP as scheduled in May 2024 Medications: New tirzepatide (weight loss) (Zepbound) for 4 weeks 2.5 mg (0.5 mL) subcut QWEEK 4 weeks 2 mL 0RF Refilled alprazolam 0.5 mg PO BID 30 days 60 tabs 0RF F43.20 - Adjustment disorder, uns pecified
== END 2024-04-02 14:00 | disposition home or self-care (01) ==
LOC: HO.HMCH 13:25
PROVIDERS: PCP Internal Medicine; Visit Provider Internal Medicine
DX: E78.00 Pure hypercholesterolemia, unspecified (principal); K21.9 Gastro-esophageal reflux disease without esophagitis; F41.1 Generalized anxiety disorder; E66.3 Overweight

== ENCOUNTER → 2024-04-02 13:25 | Outpatient (BNVA) | payer OTHER, SELFPAY | PROVIDERS: PCP Internal Medicine; Visit Provider Internal Medicine | DX: E78.00 Pure hypercholesterolemia, unspecified (principal); K21.9 Gastro-esophageal reflux disease without esophagitis; F41.1 Generalized anxiety disorder; E66.3 Overweight; Z68.27 Body mass index [BMI] 27.0-27.9, adult; Z79.899 Other long term (current) drug therapy | CPT/HCPCS: 96127 ==

== ENCOUNTER 2024-06-11 14:32 | Outpatient (AMB) | payer OTHER, SELFPAY ==
[2024-06-11 14:38] VITALS: BP 100/78; PULSE 69; TEMP 37.3; O2SAT 96; BMI 27.6
--- NOTE | 2024-06-11 14:38 | A.OFFPC_ITS ---
Vital Signs 06/11/24 14:38 Height 5 ft 6 in Weight 171 lb 2 oz BMI 27.6 BP 100/78 Blood Pressure Location Lt brachial Position Sitting Pulse 69 Pulse Source Pulse Oximeter Temp 99.2 F Temp Source Oral Pulse Oximetry (%) 96 Oxygen Delivery Method Room Air Intake Visit Reasons: review MEDS Toxicology Supervisor Required: No Accompanied by: Self / Same As Patient Allergies barium sulfate Allergy (Intermediate, Verified 06/11/24 21:56) hypertension carisoprodol [CARISOPRODOL] Allergy (Intermediate, Verified 06/11/24 14:38) DIFFICULTY BREATHING Sulfa (Sulfonamide Antibiotics) [SULFA (SULFONAMIDE ANTIBIOTICS)] Allergy (Intermediate, Verified 06/11/24 14:38) NAUSEA/DIZZINESS/SEVERE BACK PAIN, dyspnea varenicline Allergy (Intermediate, Verified 06/11/24 14:38) Unknown simvastatin Adverse Reaction (Intermediate, Verified 06/11/24 14:38) weird dreams Medication List - Last Reconciled 06/11/24 by CLEMENCIA Foote alprazolam 0.5 mg PO BID 30 days atorvastatin 10 mg PO DAILY fexofenadine (Allergy Relief (fexofenadine)) 180 mg PO DAILY fluoxetine 40 mg PO DAILY 90 days loratadine 10 mg PO DAILY omeprazole 40 mg PO DAILY 90 days ondansetron HCl 8 mg PO Q12H PRN 21 days Tobacco use date assessed: 06/11/24 Dental Screening Dental Screen Date: 06/11/24 Did you have a dental visit in the last 12 months?: Yes Did you have a dental problem in the last 6 months where you did not have access to dental care?: No Was dental information given to patient?: Patient has dentist HPI review MEDS HPI Details The patient is a 58 year old female with significant past medical history of asthma, GERD, hypercholesterolemia, irritable bowel syndrome and constipation The patient is presenting today requesting guidance to deal with self-described massive hemorrhoid Patient reports chronic reoccurring hemorrhoids. She reports that her current hemorrhoid is massive She started taking Prevagen recently and was wondering if this could have been the cause Patient reports that she does not want her hemorrhoids to be looked at and she is just requesting guidance in treating it. Reports getting them in the past and they have always resolved The patient is also requesting a referral to Orthopedics She reports that her right knee keeps dislocating and she has been putting it back into place Reports that this process has been painful for her. She denies any trauma to her right knee This has been on and off for about a year. Reports that the pain is 10/10 whenever her knee comes out of socket. She reports that she had a knee brace in the past but she is not sure where it is at this time. [facility] Medical History Breast cancer screening by mammogram Flank pain Panic anxiety syndrome COVID-19 virus infection TSH elevation Cervical radiculopathy Counseling and coordination of care Stress at work Nausea Chronic vertigo Elbow pain, left Obesity (BMI 30-39.9) Tear of left acetabular labrum Lumbar disc herniation Carpal tunnel syndrome Pulmonary nodule Dilated aortic root Asthma GERD (gastroesophageal reflux disease) Impaired glucose tolerance Hypercholesterolemia Allergic rhinitis Surgical History History of endometrial ablation History of tubal ligation Family History Father Emphysema of lung Mother Anxiety Diabetes Maternal Grandmother Breast cancer Son In good health Family/Other Anxiety Chronic mental illness Other Mental health problem Social History Housing: Apartment Alcohol intake: current Comment: once q 6 months beer Patient Tobacco Use Status: Former Tobacco user Tobacco use type: Cigarette Years Smoked: smokes pot. quit 02/12/2017 e-Cigarette/Vaping Use: Never Used Second Hand Smoke Exposure: Yes service: No Current occupational status: employed Cognitive needs: No Hearing needs: No Vision needs: No Questionnaire PHQ-9 Over the last 2 weeks, how often have you been bothered by any of the following problems? 1. Little interest or pleasure in doing things: not at all 2. Feeling down, depressed, or hopeless: not at all 3. Trouble falling or staying asleep, or sleeping too much: not at all 4. Feeling tired or having little energy: not at all 5. Poor appetite or overeating: not at all 6. Feeling bad about yourself - or that you are a failure or have let yourself or your family down: not at all 7. Trouble concentrating on things, such as reading the newspaper or watching television: not at all 8. Moving or speaking so slowly that other people could have noticed. Or the opposite - being so fidgety or restless that you have been moving around a lot more than usual: not at all 9. Thoughts that you would be better off or of hurting yourself in some way: not at all Total score: 0 Depression Screening Interpretation: Negative Depression Screening Done: Yes 18929 - PHQ-9 Billing: Yes Source: Developed by Drs. Colby Cifuentes, Rosa Isela Campbell, Km Martin and colleagues, with an educational estefany from [employer]. Thrive Questionnaire Date Thrive assessed: 06/11/24 I am a: Patient What is your living situation today?: I have a steady place to live Within the past 12 months, did the food you bought not last and you didn't have the money to get more?: Never true Within the past 12 months, did you worry whether your food would run out before you got money to buy more?: Never true Do you have trouble paying for medicines?: No Do you have trouble getting transportation to medical appointments?: No Do you have trouble paying your heating and electricity bill?: No Do you have trouble taking care of your child, family member or friend?: No Do you have trouble with day-to-day activities such as bathing, preparing meals, shopping, managing finances, etc.?: No Are you currently unemployed and looking for a job?: No Are you interested in more education?: No Please select the resources that you would like help with: None Currently or been in a relationship where the following occur: No concerns reported THRIVE Score: 0 AUDIT C Alcohol Use Questionnaire (AUDIT-C) 1. How often do you have a drink containing alcohol?: Never Total Score: 0 Score Reviewed/Action Taken: Yes ERIC-7 AMB Questionnaire ERIC-7 Date ERIC - 7 assessed: 06/11/24 Feeling nervous, anxious, or on edge: 0 = Not at all Not being able to stop or control worryin = Not at all Worrying too much about different things: 0 = Not at all Trouble relaxin = Not at all Being so restless that it is hard to sit still: 0 = Not at all Becoming easily annoyed or irritable: 0 = Not at all Feeling afraid as if something awful might happen: 0 = Not at all Total ERIC-7 score (0-4 normal; 5-9 mild; 10-14 moderate; 15-21 severe): 0 Source: Developed by Drs. Colby Cifuentes, Rosa Isela Campbell, Km Martin and colleagues, with an educational estefany from [employer]. ERIC-7 Assessment Billing ERIC-7 Assessment Tool: ERIC-7 Assessment 46497 Review of Systems Const Details: Denies chills, Denies fatigue, Denies fever(s), Denies headache(s) and Denies weakness HEENT Denies change in vision, Denies dizziness, Denies headache(s), Denies hearing loss, Denies nasal congestion, Denies sinus pain, Denies sinus pressure and Denies sore throat Card Denies chest pain, Denies lightheadedness, Denies dyspnea and Denies other (palpitations) Resp Denies cough, Denies dyspnea and Denies wheezing GI Denies abdominal pain, Denies melena, Denies hematochezia, Denies change in bowel habits, Denies dyspepsia and Denies nausea + reports recurrent hemorrhoid Denies hematuria and Denies dysuria Musc Denies abnormal gait, Denies myalgias, + report right knee recurrent dislocation, Denies numbness and Denies tingling Skin/Breast Denies rash, Denies unusual bruising and Denies wounds Neuro Denies abnormal gait, Denies dizziness, Denies headache(s), Denies memory loss, Denies numbness, Denies Sensory deficit (Neuro), Denies tingling and Denies weakness Psych Denies anxiety, Denies depression and Denies memory loss Endo Denies cold intolerance, Denies fatigue, Denies heat intolerance, Denies polydipsia and Denies polyuria Kamar/Lymph Denies easy bleeding and Denies easy bruising Aller/Immun Denies wheezing Physical exam (Primary Care) Vital Signs: Last Vital Signs Temp 99.2 F 06/11/24 14:38 Pulse 69 06/11/24 14:38 BP 100/78 06/11/24 14:38 Pulse Ox 96 06/11/24 14:38 Oxygen Delivery Method Room Air 06/11/24 14:38 BMI result Body Mass Index 27.6 Tobacco/Smoking Status: Tobacco use Status Tobacco use date assessed 06/11/24 06/11/24 14:42 Patient Tobacco Use Status Former Tobacco user 06/11/24 14:42 Tobacco use type Cigarette 06/11/24 14:42 e-Cigarette/Vaping Use Never Used 06/11/24 14:42 PHQ-9: PHQ-9 Score PHQ-9: Total score 0 06/11/24 22:21 Depression Screening Interpretation: Negative Thrive Assessment: Date of Thrive Assessment Date Thrive assessed 06/11/24 06/11/24 14:42 Currently or been in a relationship where the following occur: No concerns reported Const Other: General: no acute distress, well developed, alert and awake Nutritional Appearance: well nourished Orientation/consciousness: patient oriented x3 HENMT Head: Yes normocephalic and Yes atraumatic Eyes Pupils: Equal, round and reactive pupils present and Pupil accommodation reflex normal EOM: EOMs intact bilaterally Neck Neck: Yes normal visual inspection, Yes no lymphadenopathy and Yes trachea midline Thyroid: Thyroid normal Carotids: no bruits Lymphatic: no lymphadenopathy noted Chest Chest palpation & inspection: normal inspection of the chest Resp Effort & Inspection: normal respiratory effort Auscultation: clear to auscultation bilaterally Cardio Rate: regular rate Rhythm: regular rhythm Heart sounds: S1 normal heart sound present, S2 normal heart sound present, no gallops, no murmurs and no rubs Bruits: no abdominal aortic bruits and no carotid bruits GI Palpation (GI): abdomen soft and nontender to palpation Auscultation: normal bowel sounds Anal: deferred per patient's request General: Yes no CVA tenderness Back/Spine/Pelvis Back: no CVA tenderness Skin General: warm and dry. Normal skin color. Normal skin turgor Lesions: no lesions Nails: normal Neuro General: patient oriented x3, gait normal Cranial nerves: Yes Equal, round and reactive pupils present Cognition (Neuro): normal cognition Gait exam (Neuro): Normal gait present Extrem General: Yes normal to inspection, No edema and No calf tenderness, right knee + ROM with a popping sound. No crepitus, no edema or erythema Psych Appearance: grossly normal Affect: normal affect Attitude: cooperative Thought process: Normal thought process present Coding Level of Care Code Est Pt Level 3 (72138) Diagnoses Dislocation of right knee, subsequent encounter S83.104D Encounter type: subsequent encounter External hemorrhoid K64.4 Additional Codes ERIC-7 Assessment Billing - ERIC-7 Assessment Tool: ERIC-7 Assessment 33643 ([id number]) PHQ-9 - 65922 - PHQ-9 Billing: Yes ([id number]) Time Spent (min) 28 Assessment & Plan Assessment & Plan (1) Right knee dislocation: Code(s): S83.104A - Unspecified dislocation of right knee, initial encounter Category: Medical Qualifiers: Encounter type: subsequent encounter Qualified Code(s): S83.104D - Unspecified dislocation of right knee, subsequent encounter Plan: Reports reoccur right knee dislocation: Requesting orthopedic referral Orthopedic referral placed (2) External hemorrhoid: Code(s): K64.4 - Residual hemorrhoidal skin tags Category: Medical Plan: Encouraged lifestyle and dietary modification, specifically increased fiber intake and adequate fluids Discouraged spending excessive time straining during bowel movements Encouraged hemorrhoid ointment or suppository otc May use tucks wipes for itching If hemorrhoids continue to be significant, may require surgical consultation Plan Follow up with PCP in 3 months Orders: Orders Comprehensive [place]. Panel Fast 3 Months E55.9 - Vitamin D deficiency, unspecified, E78.00 - Pure hypercholesterolemia, unspecified, E83.52 - Hypercalcemia, F41.1 - Generalized anxiety disorder, F43.20 - Adjustment disorder, unspecified, J45.20 - Mild intermittent asthma, uncomplicated, K21.9 - Gastro-esophageal reflux disease without esophagitis, K58.0 - Irritable bowel syndrome with diarrhea, K59.00 - Constipation, unspecified, R73.02 - Impaired glucose tolerance (oral) Lipid Panel 3 Months E55.9 - Vitamin D deficiency, unspecified, E78.00 - Pure hypercholesterolemia, unspecified, E83.52 - Hypercalcemia, F41.1 - Generalized anxiety disorder, F43.20 - Adjustment disorder, unspecified, J45.20 - Mild intermittent asthma, uncomplicated, K21.9 - Gastro-esophageal reflux disease without esophagitis, K58.0 - Irritable bowel syndrome with diarrhea, K59.00 - Constipation, unspecified, R73.02 - Impaired glucose tolerance (oral) Free T4 (Free Thyroxine) 3 Months E55.9 - Vitamin D deficiency, unspecified, E78.00 - Pure hypercholesterolemia, unspecified, E83.52 - Hypercalcemia, F41.1 - Generalized anxiety disorder, F43.20 - Adjustment disorder, unspecified, J45.20 - Mild intermittent asthma, uncomplicated, K21.9 - Gastro-esophageal reflux disease without esophagitis, K58.0 - Irritable bowel syndrome with diarrhea, K59.00 - Constipation, unspecified, R73.02 - Impaired glucose tolerance (oral) Complete Blood Count Auto Diff 3 Months E55.9 - Vitamin D deficiency, unspecified, E78.00 - Pure hypercholesterolemia, unspecified, E83.52 - Hypercalcemia, F41.1 - Generalized anxiety disorder, F43.20 - Adjustment disorder, unspecified, J45.20 - Mild intermittent asthma, uncomplicated, K21.9 - Gastro-esophageal reflux disease without esophagitis, K58.0 - Irritable bowel syndrome with diarrhea, K59.00 - Constipation, unspecified, R73.02 - Impaired glucose tolerance (oral) Hemoglobin A1c 3 Months E55.9 - Vitamin D deficiency, unspecified, E78.00 - Pure hypercholesterolemia, unspecified, E83.52 - Hypercalcemia, F41.1 - Generalized anxiety disorder, F43.20 - Adjustment disorder, unspecified, J45.20 - Mild intermittent asthma, uncomplicated, K21.9 - Gastro-esophageal reflux disease without esophagitis, K58.0 - Irritable bowel syndrome with diarrhea, K59.00 - Constipation, unspecified, R73.02 - Impaired glucose tolerance (oral) Vitamin D 25-OH Total 3 Months E55.9 - Vitamin D deficiency, unspecified, E78.00 - Pure hypercholesterolemia, unspecified, E83.52 - Hypercalcemia, F41.1 - Generalized anxiety disorder, F43.20 - Adjustment disorder, unspecified, J45.20 - Mild intermittent asthma, uncomplicated, K21.9 - Gastro-esophageal reflux disease without esophagitis, K58.0 - Irritable bowel syndrome with diarrhea, K59.00 - Constipation, unspecified, R73.02 - Impaired glucose tolerance (oral) TSH reflex Free T4 3 Months E55.9 - Vitamin D deficiency, unspecified, E78.00 - Pure hypercholesterolemia, unspecified, E83.52 - Hypercalcemia, F41.1 - Generalized anxiety disorder, F43.20 - Adjustment disorder, unspecified, J45.20 - Mild intermittent asthma, uncomplicated, K21.9 - Gastro-esophageal reflux disease without esophagitis, K58.0 - Irritable bowel syndrome with diarrhea, K59.00 - Constipation, unspecified, R73.02 - Impaired glucose tolerance (oral) Referrals Orthopedics Referral S83.104A - Unspecified dislocation of right knee, initial encounter
== END 2024-06-11 15:18 | disposition home or self-care (01) ==
PROVIDERS: PCP Internal Medicine
DX: K64.4 Residual hemorrhoidal skin tags (principal); S83.104D Unspecified dislocation of right knee, subsequent encounter

== ENCOUNTER → 2024-06-11 14:32 | Outpatient (BNVA) | payer OTHER, SELFPAY | PROVIDERS: PCP Internal Medicine | DX: S83.104D Unspecified dislocation of right knee, subsequent encounter (principal); K64.4 Residual hemorrhoidal skin tags; J45.909 Unspecified asthma, uncomplicated | CPT/HCPCS: 96127 ==

== ENCOUNTER 2024-07-11 09:10 | Outpatient (REF) | payer OTHER, SELFPAY | END 2024-07-11 09:11 | disposition home or self-care (01) | LOC: HO.HOSX 09:10 | PROVIDERS: Visit Provider Physician Assistant | DX: Z13.89 Encounter for screening for other disorder (principal) ==

== ENCOUNTER 2024-09-05 10:03 | Outpatient (AMB) | payer OTHER, SELFPAY ==
[2024-09-05 10:11] VITALS: BP 110/72; BMI 29.4
--- NOTE | 2024-09-05 10:11 | A.OFFPC_ITS ---
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 Accompanied by: Self / Same As Patient Allergies barium sulfate Allergy (Intermediate, Verified 09/05/24 10:24) hypertension carisoprodol [CARISOPRODOL] Allergy (Intermediate, Verified 09/05/24 10:24) DIFFICULTY BREATHING Sulfa (Sulfonamide Antibiotics) [SULFA (SULFONAMIDE ANTIBIOTICS)] Allergy (Intermediate, Verified 09/05/24 10:24) NAUSEA/DIZZINESS/SEVERE BACK PAIN, dyspnea varenicline Allergy (Intermediate, Verified 09/05/24 10:24) Unknown simvastatin Adverse Reaction (Intermediate, Verified 09/05/24 10:24) weird dreams Medication List - Last Reconciled 09/05/24 by Manju Carr MD alprazolam 0.5 mg PO BID 30 days atorvastatin 10 mg PO DAILY fexofenadine (Allergy Relief (fexofenadine)) 180 mg PO DAILY fluoxetine 40 mg PO DAILY 90 days ibuprofen 600 mg PO TID loratadine 10 mg PO DAILY omeprazole 40 mg PO DAILY 90 days ondansetron HCl 8 mg PO Q12H PRN 21 days Tobacco use date assessed: 06/11/24 Dental Screening Dental Screen Date: 06/11/24 HPI HPI Comments History of Present Illness Details The patient is a 58-year-old female presenting with an abdominal wall abscess and neck pain. The abscess, present for a month, is sizable, red, and increasingly painful, mistaken initially for a pimple. Aggravated by badge placement at work, attempts with topical agents heightened discomfort. Fears of infection ensued due to bubbling post-application of hydrochloroxide. Cervical spondylosis management saw prior specialty consultation, but current exacerbation of neck pain severely restricts mobility, causing bilateral arm radiation and headaches. Inability to function due to intense pain persists beyond weekends despite topical and heat application. Current pain locates in the shoulder and neck area, prompting contemplation of muscle relaxants and the necessity for physical therapy referrals due to her previous successful response to such treatment. She also has GERD stable with PPIs. History of elevated TSH that will be repeated. Also has depression well control with SSRIs. [facility] Medical History (Updated 09/05/24 @ 10:42 by Manju Carr MD) TSH elevation Cervical radiculopathy Breast cancer screening by mammogram Flank pain Panic anxiety syndrome COVID-19 virus infection Counseling and coordination of care Stress at work Nausea Chronic vertigo Elbow pain, left Obesity (BMI 30-39.9) Tear of left acetabular labrum Lumbar disc herniation Carpal tunnel syndrome Pulmonary nodule Dilated aortic root Asthma GERD (gastroesophageal reflux disease) Impaired glucose tolerance Hypercholesterolemia Allergic rhinitis Surgical History History of endometrial ablation History of tubal ligation Family History Father Emphysema of lung Mother Anxiety Diabetes Maternal Grandmother Breast cancer Son In good health Family/Other Anxiety Chronic mental illness Other Mental health problem Social History Housing: Apartment Alcohol intake: current Comment: once q 6 months beer Patient Tobacco Use Status: Former Tobacco user Tobacco use type: Cigarette Years Smoked: smokes pot. quit 02/12/2017 e-Cigarette/Vaping Use: Never Used Second Hand Smoke Exposure: Yes service: No Current occupational status: employed Cognitive needs: No Hearing needs: No Vision needs: No Questionnaire Thrive Questionnaire Date Thrive assessed: 06/11/24 ERIC-7 AMB Questionnaire ERIC-7 Date ERIC - 7 assessed: 06/11/24 Source: Developed by Drs. Colby Cifuentes, Rosa Isela Campbell, Km Martin and colleagues, with an educational estefany from [employer]. Review of Systems Const All systems reviewed & are unremarkable except as noted in HPI and below Card Denies chest pain at rest, Denies chest pain with activity, Denies edema, Denies irregular heart rhythm, Denies claudication, Denies dyspnea, Denies dyspnea on exertion, Denies orthopnea, Denies paroxysmal nocturnal dyspnea and Denies slow heart rate Resp Denies cough, Denies dyspnea and Denies dyspnea on exertion GI Denies abdominal pain, Denies change in bowel habits, Denies excessive flatus, Denies nausea and Denies vomiting Physical exam (Primary Care) Vital Signs: Last Vital Signs BP 110/72 09/05/24 10:11 BMI result Body Mass Index 29.4 Tobacco/Smoking Status: Tobacco use Status Tobacco use date assessed 06/11/24 09/05/24 10:16 Patient Tobacco Use Status Former Tobacco user 09/05/24 10:16 Tobacco use type Cigarette 09/05/24 10:16 e-Cigarette/Vaping Use Never Used 09/05/24 10:16 Thrive Assessment: Date of Thrive Assessment Date Thrive assessed 06/11/24 09/05/24 10:16 Neck Other: Limited lateral neck movements, limited neck flexion and extension Neck: Yes tender Resp Effort & Inspection: normal respiratory effort Auscultation: clear to auscultation bilaterally Cardio Jugular venous distension: no JVD Rate: regular rate Rhythm: regular rhythm Heart sounds: S1 normal heart sound present and S2 normal heart sound present Skin Other: Abdominal wall abscess Extrem General: Yes full ROM Coding Level of Care Code Est Pt Level 4 (02756) Complex EM visit Add On G2211 Diagnoses Cervical radiculopathy M54.12 Cutaneous abscess of abdominal wall L02.211 Hypercholesterolemia E78.00 TSH elevation R79.89 Gastroesophageal reflux disease without esophagitis K21.9 Esophagitis presence: without esophagitis Mild major depression F32.0 Time Spent (min) 22 Assessment & Plan Assessment & Plan (1) Cervical radiculopathy: Code(s): M54.12 - Radiculopathy, cervical region Category: Medical (2) Cutaneous abscess of abdominal wall: Code(s): L02.211 - Cutaneous abscess of abdominal wall Category: Medical (3) Hypercholesterolemia: Code(s): E78.00 - Pure hypercholesterolemia, unspecified Category: Medical (4) TSH elevation: Code(s): R79.89 - Other specified abnormal findings of blood chemistry Category: Medical (5) GERD (gastroesophageal reflux disease): Code(s): K21.9 - Gastro-esophageal reflux disease without esophagitis Category: Medical Qualifiers: Esophagitis presence: without esophagitis Qualified Code(s): K21.9 - Gastro-esophageal reflux disease without esophagitis (6) Mild major depression: Code(s): F32.0 - Major depressive disorder, single episode, mild Category: Medical Plan Today's plan addresses the abdominal abscess and severe neck pain stemming from cervical spondylosis. I prescribed an oral antibiotic to manage the infection. For neck pain relief, methocarbamol will start for muscle relaxation, particularly avoiding sleepiness-inducing muscle relaxants due to allergy history. I arranged a referral to [facility] for physiotherapy. Work accommodations with rest were facilitated, providing absence notes for recovery days. Coordination will continue with upcoming appointments for monitoring ongoing hyperlipidemia and potential adjustments to existing atorvastatin. Weight management initiatives remain aligned with upcoming insurance processes for Zepbound consideration. Patient was informed and verbally consented to the use of an ambient scribe for clinic note documentation during this visit. During the visit, I discussed the presenting issues of the abdominal cyst and neck pain extensively. I confirmed that the cyst appears infected, requiring immediate antibiotic therapy, reassuring the patient of minimal risk associated with non-sulfa options. I explained the rationale for starting methocarbamol for acute neck pain given her allergy to Soma, ensuring it is convenient, non- sedative, and will likely improve symptoms. Options for physiotherapy were presented, including referral authorization to [facility] for focused therapy as a primary non-surgical intervention. I emphasized rest from work duties with medical notes issued for required days off. Hyperlipidemia management through lipid panel testing and continued atorvastatin was noted, alongside chronic weight management considerations. The patient expressed understanding and agreement with the plan. Orders: Orders Lipid Panel Today E78.5 - Hyperlipidemia, unspecified Referrals Pain Management Referral M54.12 - Radiculopathy, cervical region Medications: New methocarbamol 500 mg PO TID 7 days 21 tabs 0RF cephalexin 500 mg PO Q12H 7 days 14 caps 0RF Discontinued ondansetron HCl Discontinued Reason: Patient Completed Course 8 mg PO Q12H 21 days PRN 9 tabs 0RF nausea and vomiting H93.19 - Tinnitus, unspecified ear Patient Instructions: - Complete antibiotic course as prescribed. - Begin methocarbamol at the lowest dose; observe for side effects. - Rest and modify activities to minimize neck strain. - Attend referral physiotherapy at [facility]. - Follow-up with Dr. Nielsen to manage chronic conditions. - Perform fasting for the upcoming lipid panel test. - Avoid any known allergens in medications. - Monitor for any worsening symptoms or new concerns, and seek care if needed. - Continue participation in [employer] for weight management. - Return to work when symptoms permit, with provided note.
== END 2024-09-05 10:37 | disposition home or self-care (01) ==
LOC: HO.HMCH 10:03
PROVIDERS: PCP Internal Medicine; Visit Provider Internal Medicine
DX: M54.12 Radiculopathy, cervical region (principal); F32.0 Major depressive disorder, single episode, mild; L02.211 Cutaneous abscess of abdominal wall; E78.00 Pure hypercholesterolemia, unspecified; R79.89 Other specified abnormal findings of blood chemistry; K21.9 Gastro-esophageal reflux disease without esophagitis

== ENCOUNTER → 2024-09-05 10:03 | Outpatient (BNVA) | payer OTHER, SELFPAY | PROVIDERS: PCP Internal Medicine; Visit Provider Internal Medicine | DX: Z13.89 Encounter for screening for other disorder (principal) ==

== ENCOUNTER 2024-09-14 06:59 | Outpatient (REF) | payer OTHER, SELFPAY ==
[2024-09-14 07:15] LABS: MANUAL DIFF FLAG NO
[2024-09-14 07:35] LABS: Basophils Percent Auto 0.3 % (0-2); Eosinophils Absolute Auto 0.1 X10*3/uL (0.0-0.4); Eosinophils Percent Auto 1.5 % (0-4); Hematocrit 42.3 % (37.0-47.0); Hemoglobin 14.3 g/dl (12.0-16.0); Imm Gran Abs Auto 0.03 X10*3/uL (0.00-0.03); Imm Gran Pct Auto 0.5 % (0.0-0.4); Lymphocytes Absolute Auto 2.2 X10*3/uL (1.2-4.9); Lymphocytes Percent Auto 32.6 % (20-40); Mean Corpuscular HGB Conc 33.8 g/dl (31.0-35.0); Mean Corpuscular Hemoglobin 32.4 pg (27.0-33.0); Mean Corpuscular Volume 95.7 fL (80.0-98.0); Mean Platelet Volume 9.1 fL (9.4-12.3); Monocytes Absolute Auto 0.4 X10*3/uL (0.1-1.2); Monocytes Percent Auto 5.7 % (2-11); Neutrophils Absolute Auto 3.9 x10*3/uL (2.0-8.3); Neutrophils Percent Auto 59.4 % (45-73); Platelet Count 327 X10*3/uL (160-400); Red Blood Count 4.42 X10*6/uL (4.20-5.50); Red Cell Distribution Width 12.9 % (11.0-16.0); White Blood Count 6.6 X10*3/uL (4.8-10.8)
[2024-09-14 07:52] LABS: Estimated Average Glucose 117 mg/dL; Hemoglobin A1C 146.8776 umol/L; Hemoglobin A1c % 5.7 % (<6.0); Total Hemoglobin (HGBA1C) 3795.8084 umol/L
[2024-09-14 08:10] LABS: Alanine Aminotransferase 16 U/L (0-31); Albumin Level 4.3 g/dL (3.5-5.0); Alkaline Phosphatase 72 U/L (39-117); Aspartate Amino Transferase 25 U/L (5-31); Bilirubin Total 0.4 mg/dL (0.0-1.0); Blood Urea Nitrogen 14 mg/dL (9-16); Calcium 9.5 mg/dL (8.4-10.2); Cholesterol 191 mg/dL (<200); Estimated Glomerular Filt Rate > 60; Glucose Fasting 100 mg/dL (60-99); HDL Cholesterol 70 mg/dL (>40); LDL Cholesterol Calculated 102 mg/dL (<100); Total Protein 7.2 g/dL (6.5-8.0); Triglycerides 96 mg/dL (<150)
[2024-09-14 08:18] LABS: Anion Gap 12 (12-20); Carbon Dioxide 28 mmol/L (22-29); Chloride 107 mmol/L (96-108); Potassium 4.7 mmol/L (3.3-5.1); Sodium 142 mmol/L (135-145)
[2024-09-14 08:32] LABS: Free T4 (Free Thyroxine) 0.73 ng/dL (0.71-1.85); TSH reflex Free T4 3.43 uIU/mL (0.32-4.0); Vitamin D 25-OH Total 33.8 ng/mL (>30)
== END 2024-09-14 07:00 | disposition home or self-care (01) ==
LOC: HO.LAB 06:59
PROVIDERS: PCP Internal Medicine; Visit Provider Internal Medicine
DX: K59.00 Constipation, unspecified (principal); E78.5 Hyperlipidemia, unspecified; K58.0 Irritable bowel syndrome with diarrhea; F41.1 Generalized anxiety disorder; F43.20 Adjustment disorder, unspecified; J45.20 Mild intermittent asthma, uncomplicated; K21.9 Gastro-esophageal reflux disease without esophagitis; E78.00 Pure hypercholesterolemia, unspecified; R73.02 Impaired glucose tolerance (oral); E83.52 Hypercalcemia
CPT/HCPCS: 36415; 80053; 80061; 82306; 83036; 84439; 84443; 85025

== ENCOUNTER 2024-09-16 09:53 | Outpatient (AMB) | payer OTHER, SELFPAY ==
[2024-09-16 10:01] VITALS: BP 140/84; PULSE 108; TEMP 36.2; O2SAT 98; BMI 29.9
--- NOTE | 2024-09-16 10:01 | MHC.PC.OV ---
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 Accompanied by: Self / Same As Patient Allergies barium sulfate Allergy (Intermediate, Verified 09/16/24 10:06) hypertension carisoprodol [CARISOPRODOL] Allergy (Intermediate, Verified 09/16/24 10:06) DIFFICULTY BREATHING Sulfa (Sulfonamide Antibiotics) [SULFA (SULFONAMIDE ANTIBIOTICS)] Allergy (Intermediate, Verified 09/16/24 10:06) NAUSEA/DIZZINESS/SEVERE BACK PAIN, dyspnea varenicline Allergy (Intermediate, Verified 09/16/24 10:06) Unknown simvastatin Adverse Reaction (Intermediate, Verified 09/16/24 10:06) weird dreams Medication List - Last Reconciled 09/16/24 by Graciela Velez MD alprazolam 0.5 mg PO BID 30 days atorvastatin 10 mg PO DAILY doxycycline hyclate 100 mg PO DAILY fexofenadine (Allergy Relief (fexofenadine)) 180 mg PO DAILY fluoxetine 40 mg PO DAILY 90 days ibuprofen 600 mg PO TID loratadine 10 mg PO DAILY methocarbamol 500 mg PO TID 7 days omeprazole 40 mg PO DAILY 90 days Tobacco use date assessed: 06/11/24 Dental Screening Dental Screen Date: 06/11/24 [facility] Medical History (Updated 09/16/24 @ 10:14 by Graciela Velez MD) TSH elevation Cervical radiculopathy Breast cancer screening by mammogram Flank pain Panic anxiety syndrome COVID-19 virus infection Counseling and coordination of care Stress at work Nausea Chronic vertigo Elbow pain, left Obesity (BMI 30-39.9) Tear of left acetabular labrum Lumbar disc herniation Carpal tunnel syndrome Pulmonary nodule Dilated aortic root Asthma GERD (gastroesophageal reflux disease) Impaired glucose tolerance Hypercholesterolemia Allergic rhinitis Surgical History History of endometrial ablation History of tubal ligation Family History Father Emphysema of lung Mother Anxiety Diabetes Maternal Grandmother Breast cancer Son In good health Family/Other Anxiety Chronic mental illness Other Mental health problem Social History Housing: Apartment Alcohol intake: current Comment: once q 6 months beer Patient Tobacco Use Status: Former Tobacco user Tobacco use type: Cigarette Years Smoked: smokes pot. quit 02/12/2017 e-Cigarette/Vaping Use: Never Used Second Hand Smoke Exposure: Yes service: No Current occupational status: employed Cognitive needs: No Hearing needs: No Vision needs: No Questionnaire Thrive Questionnaire Date Thrive assessed: 06/11/24 ERIC-7 AMB Questionnaire ERIC-7 Date ERIC - 7 assessed: 06/11/24 Source: Developed by Drs. Colby Cifuentes, Rosa Isela Campbell, Km Martin and colleagues, with an educational estefany from [employer]. Physical exam (Primary Care) Vital Signs: Last Vital Signs Temp 97.1 F 09/16/24 10:01 Pulse 108 H 09/16/24 10:01 BP 140/84 H 09/16/24 10:01 Pulse Ox 98 09/16/24 10:01 Oxygen Delivery Method Room Air 09/16/24 10:01 BMI result Body Mass Index 29.9 Tobacco/Smoking Status: Tobacco use Status Tobacco use date assessed 06/11/24 09/16/24 10:08 Patient Tobacco Use Status Former Tobacco user 09/16/24 10:08 Tobacco use type Cigarette 09/16/24 10:08 e-Cigarette/Vaping Use Never Used 09/16/24 10:08 Thrive Assessment: Date of Thrive Assessment Date Thrive assessed 06/11/24 09/16/24 10:08 Const General: alert; No acute distress Eyes Conjunctivae: conjunctivae normal Resp Auscultation: clear to auscultation bilaterally Cardio Rate: regular rate Rhythm: regular rhythm GI Inspection: Yes normal to inspection Extrem General: Yes normal to inspection and No edema Coding Level of Care Code Est Pt Level 4 (97317) Complex EM visit Add On G2211 Diagnoses Impaired glucose tolerance R73.02 Hypercholesterolemia E78.00 Gastroesophageal reflux disease without esophagitis K21.9 Esophagitis presence: without esophagitis Mild intermittent asthma without complication J45.20 Asthma severity: mild Asthma persistence: intermittent Asthma complication type: uncomplicated Dilated aortic root I77.810 Dislocation of right knee, subsequent encounter S83.104D Encounter type: subsequent encounter Cutaneous abscess of abdominal wall L02.211 Cervical spondylosis M47.812 Mild major depression F32.0 Assessment & Plan Assessment & Plan (1) Impaired glucose tolerance: Code(s): R73.02 - Impaired glucose tolerance (oral) Category: Medical Plan: Decrease the amount of carbohydrate intake, pasta, bread, rice and potatoes are all sugar and that is aside from all the sweet stuff, remember that fruits are good but they are Sweet also. (2) Hypercholesterolemia: Code(s): E78.00 - Pure hypercholesterolemia, unspecified Category: Medical Plan: Avoid fried foods, chicken skin, eggs, butter margarine, pastries and meat. Be it pork or beef they have a lot of cholesterol on atorvastatin LDL goal of less than 130 and triglyceride of less than 150 (3) GERD (gastroesophageal reflux disease): Code(s): K21.9 - Gastro-esophageal reflux disease without esophagitis Category: Medical Qualifiers: Esophagitis presence: without esophagitis Qualified Code(s): K21.9 - Gastro-esophageal reflux disease without esophagitis Plan: Avoid the foods that causes that usually spicy foods, tomato products, juices, coffee, soda and foods that your sensitive to. After eating do not lie down, allow 3-4 hours before in lie down. And keep the head of bed above 30 degrees to avoid the acid from going up. (4) Asthma: Code(s): J45.909 - Unspecified asthma, uncomplicated Category: Medical Qualifiers: Asthma severity: mild Asthma persistence: intermittent Asthma complication type: uncomplicated Qualified Code(s): J45.20 - Mild intermittent asthma, uncomplicated Plan: Stable has not been requiring any inhaler (5) Dilated aortic root: Comment: Ascending aorta dilatation 4.0 12/30/2016, 4.28 October 2018, February 2020 4.2 cm, September 2019 to 4.2 cm April 2022 4.3 cm December 2023 4.3 cm Code(s): I77.810 - Thoracic aortic ectasia Category: Medical Plan: Continue to monitor and last tested in December 2023 4.3 cm control the blood pressure (6) Right knee dislocation: Code(s): S83.104A - Unspecified dislocation of right knee, initial encounter Category: Medical Qualifiers: Encounter type: subsequent encounter Qualified Code(s): S83.104D - Unspecified dislocation of right knee, subsequent encounter Plan: Patient was referred to orthopedics but did not see the note. (7) Cutaneous abscess of abdominal wall: Code(s): L02.211 - Cutaneous abscess of abdominal wall Category: Medical Plan: Patient was treated with antibiotic (8) Cervical spondylosis: Code(s): M47.812 - Spondylosis without myelopathy or radiculopathy, cervical region Category: Medical Plan: seeing [facility] and will have PT september 2024 (9) Mild major depression: Code(s): F32.0 - Major depressive disorder, single episode, mild Category: Medical Plan: Continuing with fluoxetine. Patient states going to retire soon and when she is feeling better might decrease the fluoxetine next time. Plan History of Present Illness The patient is a 58-year-old female presenting for follow-up of multiple chronic conditions. Her medical history includes hypercholesterolemia, asthma, GERD, and anxiety disorder. She has a resolved history of tuberculosis and ongoing symptoms suggestive of irritable bowel syndrome with episodes of diarrhea. The patient has a history of abdominal wall abscess treated with antibiotics, which has improved significantly with no current signs of infection. She also suffers from cervical spondylosis and recent flare-ups have necessitated short-term use of prednisone and muscle relaxants, with an upcoming physical therapy evaluation planned. Her right knee pain due to degenerative changes has remained chronic yet stable. Routine blood work showed normal results, aside from slightly increased Hemoglobin A1c, suggesting careful monitoring of blood sugar levels. Health Maintenance - Last mammogram conducted mid-2023. - Colonoscopy performed in 2018. - Last blood work done in August: normal blood count, electrolytes, renal function, and LDL levels. - LDL goal is less than 130 mg/dL and triglycerides less than 150 mg/dL. - Vitamin D and thyroid levels within normal limits. - Patient is on atorvastatin for hypercholesterolemia management. - Active discussions around weight management and potential start on Zepbound after completing weight loss program. 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 - Family Status: Recently experienced a family , expecting inheritance. - Substance Use: Occasionally uses marijuana, mainly edibles; reports vaping occasionally. - Exercise and Activity: Considering joining a gym with a pool; plans to utilize physical therapy for neck and shoulder issues. - Weight Management: Engaged in weight loss program, considering medical intervention for obesity. Review of Systems - Constitutional: Denies fever. - Respiratory: Reports asthma. - Cardiovascular: No specific symptoms reported. - Gastrointestinal: Reports diarrhea, history of GERD and irritable bowel syndrome. - Musculoskeletal: Reports neck pain, right knee pain, and shoulder discomfort. - Dermatologic: Previously had an infected pimple/abscess. - Psychiatric: Reports anxiety, insomnia, and emotional eating. Physical Exam Results - Echocardiogram: Aortic root measured at 4.3 cm, normal ejection fraction. - Laboratory: Normal blood count, electrolytes, renal function, hemoglobin A1c 5.7%, and LDL levels indicated within desired range. Plan I will continue management of hypercholesterolemia with atorvastatin, aiming to maintain LDL and triglyceride targets. Asthma is stable with current therapies, while GERD remains controlled with monitoring. Anxiety disorder management is under review, with a possible decrease in fluoxetine dosage targeted for the future. Physical therapy is scheduled for cervical spondylosis and shoulder pain relief. Use of prednisone for short-term inflammation management is planned, monitoring potential hyperglycemic effects. Continued care for the abdominal wall abscess is warranted with antibiotic ointment usage, and the upcoming evaluation for Zepbound treatment for obesity is anticipated. Patient was informed and verbally consented to the use of an ambient scribe for clinic note documentation during this visit. Discussion Notes I discussed the implications of current symptomatology and potential effects of long-term prednisone use for cervical spondylosis, emphasizing the consideration of impacts on her blood sugar levels. The weight management approach was thoroughly reviewed, contemplating lifestyle adjustments alongside pharmaceutical interventions following program completion in September. Furthermore, the patient was advised on the potential cardiovascular risks associated with smoking marijuana, particularly when undergoing surgery. Consent for current and proposed medical interventions was obtained following detailed conversations about risks, benefits, and alternative options for each chronic and acute condition presented. I recommended follow-up appointments to reassess treatment efficacy and to monitor the patient's progress in her ongoing health maintenance plans. Patient Instructions - Continue current medications as prescribed. - Apply antibiotic ointment to the abscess site if any symptoms arise. - Attend scheduled physical therapy sessions starting October 08. - Monitor blood sugar levels if using prednisone. - Inform us of any changes in symptoms or concerns. - Follow up after six months to reassess weight management program and potential for starting Zepbound therapy. - Consider lifestyle modifications to promote heart health and weight loss. - Avoid smoking marijuana due to associated risks. Medications: New doxycycline hyclate 100 mg PO DAILY 14 caps 0RF L02.211 - Cutaneous abscess of abdominal wall
== END 2024-09-16 10:27 | disposition home or self-care (01) ==
LOC: HO.HMCH 09:53
PROVIDERS: PCP Internal Medicine; Visit Provider Internal Medicine
DX: R73.02 Impaired glucose tolerance (oral) (principal); I77.810 Thoracic aortic ectasia; F32.0 Major depressive disorder, single episode, mild; E78.00 Pure hypercholesterolemia, unspecified; K21.9 Gastro-esophageal reflux disease without esophagitis; J45.20 Mild intermittent asthma, uncomplicated; S83.104D Unspecified dislocation of right knee, subsequent encounter; L02.211 Cutaneous abscess of abdominal wall; M47.812 Spondylosis without myelopathy or radiculopathy, cervical region

== ENCOUNTER → 2024-09-16 09:53 | Outpatient (BNVA) | payer OTHER, SELFPAY | PROVIDERS: PCP Internal Medicine; Visit Provider Internal Medicine | DX: Z13.89 Encounter for screening for other disorder (principal) ==

== ENCOUNTER 2024-12-17 15:54 | Outpatient (AMB) | payer OTHER, SELFPAY ==
[2024-12-17 16:04] VITALS: BP 116/80; PULSE 74; RESP 16; TEMP 36.3; O2SAT 96; BMI 29.7
--- NOTE | 2024-12-17 16:04 | MHC.PC.OV ---
Vital Signs 12/17/24 16:04 Height 5 ft 6 in Weight 184 lb 2 oz BMI 29.7 BP 116/80 Blood Pressure Location Lt brachial Position Sitting Respiration 16 Pulse 74 Pulse Source Pulse Oximeter Temp 97.3 F Temp Source Temporal Artery Scan Pulse Oximetry (%) 96 Oxygen Delivery Method Room Air Intake Visit Reasons: overweight, cholesterol Allergies barium sulfate Allergy (Intermediate, Verified 12/17/24 16:04) hypertension carisoprodol (CARISOPRODOL) Allergy (Intermediate, Verified 12/17/24 16:04) DIFFICULTY BREATHING Sulfa (Sulfonamide Antibiotics) (SULFA (SULFONAMIDE ANTIBIOTICS)) Allergy (Intermediate, Verified 12/17/24 16:04) NAUSEA/DIZZINESS/SEVERE BACK PAIN, dyspnea varenicline Allergy (Intermediate, Verified 12/17/24 16:04) Unknown simvastatin Adverse Reaction (Intermediate, Verified 12/17/24 16:04) weird dreams Medication List - Last Reconciled 12/17/24 by Graciela Velez MD alprazolam 0.5 mg PO BID 30 days atorvastatin 10 mg PO DAILY fexofenadine (Allergy Relief (fexofenadine)) 180 mg PO DAILY fluoxetine 20 mg PO DAILY 90 days ibuprofen 600 mg PO TID loratadine 10 mg PO DAILY methocarbamol 500 mg PO TID 7 days omeprazole 40 mg PO DAILY 90 days Tobacco use date assessed: 12/17/24 Dental Screening Dental Screen Date: 12/17/24 Did you have a dental visit in the last 12 months?: Yes Did you have a dental problem in the last 6 months where you did not have access to dental care?: No Was dental information given to patient?: Patient has dentist [facility] Medical History TSH elevation Cervical radiculopathy Breast cancer screening by mammogram Flank pain Panic anxiety syndrome COVID-19 virus infection Counseling and coordination of care Stress at work Nausea Chronic vertigo Elbow pain, left Obesity (BMI 30-39.9) Tear of left acetabular labrum Lumbar disc herniation Carpal tunnel syndrome Pulmonary nodule Dilated aortic root Asthma GERD (gastroesophageal reflux disease) Impaired glucose tolerance Hypercholesterolemia Allergic rhinitis Surgical History History of endometrial ablation History of tubal ligation Family History Father Emphysema of lung Mother Anxiety Diabetes Maternal Grandmother Breast cancer Son In good health Family/Other Anxiety Chronic mental illness Other Mental health problem Social History Housing: Apartment Alcohol intake: current Comment: once q 6 months beer Patient Tobacco Use Status: Former Tobacco user Tobacco use type: Cigarette Years Smoked: smokes pot. quit 02/12/2017 e-Cigarette/Vaping Use: Never Used Second Hand Smoke Exposure: Yes service: No Current occupational status: employed Cognitive needs: No Hearing needs: No Vision needs: No Questionnaire PHQ-9 Over the last 2 weeks, how often have you been bothered by any of the following problems? 1. Little interest or pleasure in doing things: not at all 2. Feeling down, depressed, or hopeless: not at all 3. Trouble falling or staying asleep, or sleeping too much: not at all 4. Feeling tired or having little energy: not at all 5. Poor appetite or overeating: not at all 6. Feeling bad about yourself - or that you are a failure or have let yourself or your family down: not at all 7. Trouble concentrating on things, such as reading the newspaper or watching television: not at all 8. Moving or speaking so slowly that other people could have noticed. Or the opposite - being so fidgety or restless that you have been moving around a lot more than usual: not at all 9. Thoughts that you would be better off or of hurting yourself in some way: not at all Total score: 0 Source: Developed by Drs. Colby Cifuentes, Rosa Isela Campbell, Km Martin and colleagues, with an educational estefany from [employer]. Thrive Questionnaire Date Thrive assessed: 06/11/24 I am a: Patient What is your living situation today?: I have a steady place to live Within the past 12 months, did the food you bought not last and you didn't have the money to get more?: Never true Within the past 12 months, did you worry whether your food would run out before you got money to buy more?: I choose not to answer this question Do you have trouble paying for medicines?: No Do you have trouble getting transportation to medical appointments?: No Do you have trouble paying your heating and electricity bill?: No Do you have trouble taking care of your child, family member or friend?: No Do you have trouble with day-to-day activities such as bathing, preparing meals, shopping, managing finances, etc.?: No Are you currently unemployed and looking for a job?: No Are you interested in more education?: No Please select the resources that you would like help with: None Currently or been in a relationship where the following occur: I choose not to answer THRIVE Score: 0 AUDIT C Alcohol Use Questionnaire (AUDIT-C) 1. How often do you have a drink containing alcohol?: Monthly or less 2. How many drinks containing alcohol do you have on a typical day when you are drinking?: 1 or 2 3. How often do you have six or more drinks on one occasion?: Never Total Score: 1 ERIC-7 AMB Questionnaire ERIC-7 Date ERIC - 7 assessed: 06/11/24 Feeling nervous, anxious, or on edge: 0 = Not at all Not being able to stop or control worryin = Not at all Worrying too much about different things: 0 = Not at all Trouble relaxin = Not at all Being so restless that it is hard to sit still: 0 = Not at all Becoming easily annoyed or irritable: 1 = Several days Feeling afraid as if something awful might happen: 0 = Not at all Total ERIC-7 score (0-4 normal; 5-9 mild; 10-14 moderate; 15-21 severe): 1 Source: Developed by Drs. Colby Cifuentes, Rosa Isela Campbell, Km Martin and colleagues, with an educational estefany from [employer]. Physical exam (Primary Care) Vital Signs: Last Vital Signs Temp 97.3 F 12/17/24 16:04 Pulse 74 12/17/24 16:04 Resp 16 12/17/24 16:04 BP 116/80 12/17/24 16:04 Pulse Ox 96 12/17/24 16:04 Oxygen Delivery Method Room Air 12/17/24 16:04 BMI result Body Mass Index 29.7 Tobacco/Smoking Status: Tobacco use Status Tobacco use date assessed 12/17/24 12/17/24 16:05 Patient Tobacco Use Status Former Tobacco user 12/17/24 16:05 Tobacco use type Cigarette 12/17/24 16:05 e-Cigarette/Vaping Use Never Used 12/17/24 16:05 PHQ-9: PHQ-9 Score PHQ-9: Total score 0 12/17/24 16:47 Thrive Assessment: Date of Thrive Assessment Date Thrive assessed 06/11/24 12/17/24 16:05 Currently or been in a relationship where the following occur: I choose not to answer Const General: alert; No acute distress Eyes Conjunctivae: conjunctivae normal Resp Auscultation: clear to auscultation bilaterally Cardio Rate: regular rate Rhythm: regular rhythm GI Inspection: Yes normal to inspection Extrem General: Yes normal to inspection and No edema Coding Level of Care Code Est Pt Level 4 (30412) Complex EM visit Add On G2211 Diagnoses Impaired glucose tolerance R73.02 Generalized anxiety disorder F41.1 Hypercholesterolemia E78.00 Gastroesophageal reflux disease without esophagitis K21.9 Esophagitis presence: without esophagitis Overweight (BMI 25.0-29.9) E66.3 Cervical spondylosis M47.812 Assessment & Plan Assessment & Plan (1) Impaired glucose tolerance: Code(s): R73.02 - Impaired glucose tolerance (oral) Category: Medical Plan: Decrease the amount of carbohydrate intake, pasta, bread, rice and potatoes are all sugar and that is aside from all the sweet stuff, remember that fruits are good but they are Sweet also. (2) Generalized anxiety disorder: Comment: [facility] Code(s): F41.1 - Generalized anxiety disorder Category: Medical Plan: Continue with counseling and therapy but has been getting better with the change of work environment (3) Hypercholesterolemia: Code(s): E78.00 - Pure hypercholesterolemia, unspecified Category: Medical Plan: Avoid fried foods, chicken skin, eggs, butter margarine, pastries and meat. Be it pork or beef they have a lot of cholesterol (4) GERD (gastroesophageal reflux disease): Code(s): K21.9 - Gastro-esophageal reflux disease without esophagitis Category: Medical Qualifiers: Esophagitis presence: without esophagitis Qualified Code(s): K21.9 - Gastro-esophageal reflux disease without esophagitis Plan: Avoid the foods that causes that usually spicy foods, tomato products, juices, coffee, soda and foods that your sensitive to. After eating do not lie down, allow 3-4 hours before in lie down. And keep the head of bed above 30 degrees to avoid the acid from going up. (5) Overweight (BMI 25.0-29.9): Code(s): E66.3 - Overweight Category: Medical Plan: Diet and exercise (6) Cervical spondylosis: Code(s): M47.812 - Spondylosis without myelopathy or radiculopathy, cervical region Category: Medical Plan: Resolving. Plan History of Present Illness The patient is a 59-year-old female presenting for follow-up of generalized anxiety disorder and management of impingement syndrome of the left shoulder. The patient has a history of generalized anxiety disorder, last seen in August 2024 for follow-up. She reports improvement in symptoms with counseling therapy and a change in work environment. The patient is currently on fluoxetine and has requested to reduce the dosage to 20 mg. The patient has impingement syndrome of the left shoulder, for which she has previously received injections and was advised to undergo physical therapy. She reports that physical therapy included massage and heat, which she has since discontinued. The patient was also prescribed prednisone for this condition. The patient has impaired glucose tolerance, with a hemoglobin A1c of 5.7% noted in August 2024. Her fasting blood glucose was recorded at 100 mg/dL, indicating borderline levels. Previous A1c values were 5.4%, 5.1%, 5.1%, and 5.2%, showing a gradual increase over time. The patient is overweight, which is a contributing factor to her impaired glucose tolerance. She has not pursued a letter for [employer] or other weight management programs due to personal priorities. Preventative care measures include an up-to-date mammogram and a colonoscopy performed in 2019. Health Maintenance - Mammogram is up to date - Colonoscopy performed in 2019 - Blood work monitoring for glucose levels, with fasting blood glucose and hemoglobin A1c assessments - Discussion of shingles vaccination, recommended but not required Social History - Employment: Recently transferred to a new work environment, which has improved her anxiety symptoms - Housing: Currently seeking an apartment closer to her new workplace - Commute: Drives approximately 80 miles daily Review of Systems - Musculoskeletal: Reports pain in the left shoulder, improved with physical therapy but still present - Endocrine: Reports borderline glucose levels, with a recent increase in hemoglobin A1c - Psychiatric: Reports improvement in anxiety symptoms with counseling and environmental change Physical Exam Results - Labs: Normal blood count, normal electrolytes, normal renal function, hemoglobin A1c of 5.7%, fasting blood glucose of 100 mg/dL, LDL cholesterol of 102 mg/dL Plan The patient will continue with counseling therapy to manage generalized anxiety disorder, with a reduction in fluoxetine dosage to 20 mg as requested. For impingement syndrome of the left shoulder, the patient is advised to resume physical therapy and continue with prescribed medications, including prednisone. The patient will undergo fasting blood work in three months to monitor glucose levels, with a focus on hemoglobin A1c and fasting blood glucose. Preventative care measures include maintaining up-to-date mammograms and considering shingles vaccination, which is available at pharmacies. Patient was informed and verbally consented to the use of an ambient scribe for clinic note documentation during this visit. Discussion Notes I discussed with the patient the importance of continuing counseling therapy for her generalized anxiety disorder and agreed to reduce her fluoxetine dosage to 20 mg. We reviewed the management of her left shoulder impingement syndrome, emphasizing the need to resume physical therapy and adhere to her medication regimen, including prednisone. I explained the significance of monitoring her glucose levels, particularly her hemoglobin A1c, and scheduled fasting blood work for three months from now. We also discussed preventative care, including the option of a shingles vaccination, which is not mandatory but recommended, and is available at local pharmacies. Patient Instructions - Continue counseling therapy for anxiety management. - Reduce fluoxetine dosage to 20 mg as discussed. - Resume physical therapy for left shoulder impingement. - Take prescribed medications, including prednisone, as directed. - Schedule and complete fasting blood work in three months. - Consider shingles vaccination, available at pharmacies. Orders: Orders Hemoglobin A1c 3 Months R73.02 - Impaired glucose tolerance (oral) Vitamin B12 and Folate 3 Months R73.02 - Impaired glucose tolerance (oral) Vitamin D 25-OH Total 3 Months R73.02 - Impaired glucose tolerance (oral) UA CC w/rflx Micro + Cult 3 Months R30.0 - Dysuria, R73.02 - Impaired glucose tolerance (oral) Comprehensive Met. Panel 3 Months R73.02 - Impaired glucose tolerance (oral) Complete Blood Count Auto Diff 3 Months R73.02 - Impaired glucose tolerance (oral) Lipid Panel 3 Months E78.00 - Pure hypercholesterolemia, unspecified, R73.02 - Impaired glucose tolerance (oral) Free T4 (Free Thyroxine) 3 Months R73.02 - Impaired glucose tolerance (oral) Thyroid Stimulating Hormone 3 Months R73.02 - Impaired glucose tolerance (oral) Medications: Changed From fluoxetine 40 mg PO DAILY 90 days 90 caps 2RF F41.1 - Generalized anxiety disorder To fluoxetine 20 mg PO DAILY 90 caps 2RF 90 days F41.1 - Generalized anxiety disorder Refilled methocarbamol 500 mg PO TID 21 tabs 0RF 7 days
--- OUTSIDE RECORDS SUMMARY | 2024-12-17 16:35 | XMS_ITS | Patient Health Record ---
Author Organization [facility] Address [address] [place] [id number] Care Team Providers Care Service Vehicle Operator Name Role Phone Po Graciela JAEGER Primary Care Provider Colby Chu [phone] Allergies Allergen (clinical drug ingredient) Drug/Non Drug Allergy documented on EMR Reaction Allergy Type Onset Date Status sulfacetamide Sulfacetamide Sodium Unknown Drug Allergy Active carisoprodol Soma Unknown Drug Allergy Acti ve varenicline Chantix Unknown Drug Allergy Activ e Reason For Referral No Information Medications Medication SIG (Take, Route, Fr equency, Duration) Notes Start Date End Date Status FLUoxetine HCl 20 MG 1 capsule Orally Once a day Active ALPRAZolam 0.5 MG 1 tablet Orally as directed Active Omeprazole 20 MG 1 capsule Orally Once a day Active Ibuprofen 600 MG 1 tablet with food o r milk as needed Orally as directed Active Multivitamin Adults - as directed Orally Active Aleve 220 MG 1 tablet with food o r milk as needed Orally every 12 hrs Activ e Albuterol - as directed inhale as needed Active Immunizations Vaccine Route Administration Date Status Comme nts Influenza Unknown 08/09/2018 Refused Social History Tobacco Use: Social History Observation Description Date Details (start date - stop date) Former Smoker NA - NA Tobacco Use/Smoking Question Answer Notes Patient is a former smoker When did you stop smoking? 2017 How long has it been since you last smoked? 1-5 years Alcohol Screen Question Answer Notes Did you have a drink contain ing alcohol in the past year? Yes How often did you have a dri nk containing alcohol in the past year? 2 to 4 times a month (2 points) How many drinks did you have on a typical day when you were drinking in the past year? 3 or 4 drinks (1 point) How often did you have 6 or more drinks on one occasion in the past year? Never (0 point) Points 3 Interpretation Positive Section Notes: Nonsmoker since 02/2017; no sig alcohol Problems Problem Type SNOMED Code ICD Code Onset Dates Problem Status W/U Status Risk Notes Problem 907585445 Encounter for screening for malignant neoplasm of colon (Z12.11) Active confirmed Problem 828964283 Gastroesophageal reflux disease, esophagitis presence not specified (K21.9) Active confirmed Plan Of Treatment Pending Test Test Name Order Date GI BIOPSY 11/05/2018 Future Test Test Name Order Date UPPER GI ENDOSCOPY 08/09/2018 COLONOSCOPY 08/09/2018 Insurance Providers Payer Name Payer Address Payer Phone Subscriber Number Group Number Insured Name Patient Relationship to Insured Coverage Start Date Coverage End Date [facility] [address] [facility] [place] [id number] DOMONIQUE ALEXIS Self - patient is the insured Medical (General) History Medical History History ICD Code Asthma Thoracic aortic aneurysm---4.2 cm Anxiety Nodules on lungs Diet-controlled DM Colonoscopy in 2007--only hyperplastic p olyps and internal hemorrhoids GERD-told of a HH many years ago with an upper endoscopy Told of sleep apnea--has not had a formal sleep study though--not using a CPAP Surgical History Surgery Date(Month/Year) Uterine ablation Cataracts
== END 2024-12-17 16:59 | disposition home or self-care (01) ==
LOC: HO.HMCH 15:55
PROVIDERS: PCP Internal Medicine; Visit Provider Internal Medicine
DX: R73.02 Impaired glucose tolerance (oral) (principal); F41.1 Generalized anxiety disorder; E78.00 Pure hypercholesterolemia, unspecified; K21.9 Gastro-esophageal reflux disease without esophagitis; E66.3 Overweight; M47.812 Spondylosis without myelopathy or radiculopathy, cervical region

== ENCOUNTER 2025-04-07 13:03 | Outpatient (REF) | payer OTHER, SELFPAY ==
[2025-04-07 13:17] LABS: MANUAL DIFF FLAG NO
[2025-04-07 13:59] LABS: Hematocrit 42.5 % (37.0-47.0); Hemoglobin 14.0 g/dl (12.0-16.0); Imm Gran Abs Auto 0.01 X10*3/uL (0.00-0.03); Imm Gran Pct Auto 0.2 % (0.0-0.4); Lymphocytes Absolute Auto 2.8 X10*3/uL (1.2-4.9); Mean Corpuscular HGB Conc 32.9 g/dl (31.0-35.0); Mean Corpuscular Hemoglobin 31.7 pg (27.0-33.0); Mean Corpuscular Volume 96.4 fL (80.0-98.0); NRBC Abs Auto 0.000 X10*3/uL (0.0-0.012); NRBC Pct Auto 0.0 /100WBC (0.0-0.2); Platelet Count 316 X10*3/uL (160-400); Red Blood Count 4.41 X10*6/uL (4.20-5.50); White Blood Count 6.7 X10*3/uL (4.8-10.8)
[2025-04-07 14:46] LABS: Appearance Urine Clear; Glucose Urine UA Negative (Negative); PH 5.5 (5.0-9.0); Specific Gravity - Urine 1.020 (1.005-1.025); UMIC TRIGGER UACC YES
[2025-04-07 16:30] LABS: Alanine Aminotransferase 13 U/L (0-31); Albumin Level 4.7 g/dL (3.5-5.0); Alkaline Phosphatase 68 U/L (39-117); Anion Gap 14 (12-20); Aspartate Amino Transferase 27 U/L (5-31); Blood Urea Nitrogen 12 mg/dL (9-16); Calcium 9.6 mg/dL (8.4-10.2); Carbon Dioxide 28 mmol/L (22-29); Chloride 106 mmol/L (96-108); Cholesterol 182 mg/dL (<200); Estimated Glomerular Filt Rate > 60; HDL Cholesterol 55 mg/dL (>40); Potassium 4.9 mmol/L (3.3-5.1); Sodium 143 mmol/L (135-145); Total Protein 7.4 g/dL (6.5-8.0); Triglycerides 248 mg/dL (<150)
[2025-04-07 17:02] LABS: Free T4 (Free Thyroxine) 0.71 ng/dL (0.71-1.85); Thyroid Stimulating Hormone 3.76 uIU/mL (0.32-4.0)
[2025-04-07 17:04] LABS: Folate 6.4 ng/mL (> or = 4.0); Vitamin B12 383 pg/mL (200-900)
== END 2025-04-07 13:04 | disposition home or self-care (01) ==
LOC: HO.LAB 13:03
PROVIDERS: PCP Internal Medicine; Visit Provider Internal Medicine
DX: R73.02 Impaired glucose tolerance (oral) (principal); E78.00 Pure hypercholesterolemia, unspecified
CPT/HCPCS: 36415; 80053; 80061; 81001; 81003; 82306; 82607; 82746; 83036; 84439; 84443; 85025

== ENCOUNTER 2025-04-08 15:31 | Outpatient (AMB) | payer OTHER, SELFPAY ==
[2025-04-08 15:42] VITALS: BP 108/82; PULSE 73; TEMP 36.3; O2SAT 94; BMI 30.3
--- NOTE | 2025-04-08 15:42 | MHC.PC.OV ---
Vital Signs 04/08/25 15:42 Height 5 ft 6 in Weight 188 lb BMI 30.3 BP 108/82 Blood Pressure Location Lt brachial Position Sitting Pulse 73 Pulse Source Pulse Oximeter Temp 97.3 F Temp Source Temporal Artery Scan Pulse Oximetry (%) 94 Oxygen Delivery Method Room Air Intake Visit Reasons: IGT Allergies barium sulfate Allergy (Intermediate, Verified 04/08/25 15:42) hypertension carisoprodol (CARISOPRODOL) Allergy (Intermediate, Verified 04/08/25 15:42) DIFFICULTY BREATHING Sulfa (Sulfonamide Antibiotics) (SULFA (SULFONAMIDE ANTIBIOTICS)) Allergy (Intermediate, Verified 04/08/25 15:42) NAUSEA/DIZZINESS/SEVERE BACK PAIN, dyspnea varenicline Allergy (Intermediate, Verified 04/08/25 15:42) Unknown simvastatin Adverse Reaction (Intermediate, Verified 04/08/25 15:42) weird dreams Medication List - Last Reconciled 04/08/25 by Graciela Velez MD alprazolam 0.5 mg PO BID 30 days atorvastatin 10 mg PO DAILY fluoxetine 20 mg PO DAILY 90 days ibuprofen 600 mg PO TID methocarbamol 500 mg PO TID 7 days omeprazole 40 mg PO DAILY 90 days Tobacco use date assessed: 04/08/25 Dental Screening Dental Screen Date: 04/08/25 Did you have a dental visit in the last 12 months?: Yes Did you have a dental problem in the last 6 months where you did not have access to dental care?: No Was dental information given to patient?: Patient has dentist [facility] Medical History TSH elevation Cervical radiculopathy Breast cancer screening by mammogram Flank pain Panic anxiety syndrome COVID-19 virus infection Counseling and coordination of care Stress at work Nausea Chronic vertigo Elbow pain, left Obesity (BMI 30-39.9) Tear of left acetabular labrum Lumbar disc herniation Carpal tunnel syndrome Pulmonary nodule Dilated aortic root Asthma GERD (gastroesophageal reflux disease) Impaired glucose tolerance Hypercholesterolemia Allergic rhinitis Surgical History History of endometrial ablation History of tubal ligation Family History Father Emphysema of lung Mother Anxiety Diabetes Maternal Grandmother Breast cancer Son In good health Family/Other Anxiety Chronic mental illness Other Mental health problem Social History Housing: Apartment Alcohol intake: current Comment: once q 6 months beer Patient Tobacco Use Status: Former Tobacco user Tobacco use type: Cigarette Years Smoked: smokes pot. quit 02/12/2017 e-Cigarette/Vaping Use: Currently Using Second Hand Smoke Exposure: Yes service: No Current occupational status: employed Cognitive needs: No Hearing needs: No Vision needs: No Questionnaire PHQ-9 Over the last 2 weeks, how often have you been bothered by any of the following problems? 1. Little interest or pleasure in doing things: not at all 2. Feeling down, depressed, or hopeless: not at all 3. Trouble falling or staying asleep, or sleeping too much: not at all 4. Feeling tired or having little energy: not at all 5. Poor appetite or overeating: not at all 6. Feeling bad about yourself - or that you are a failure or have let yourself or your family down: not at all 7. Trouble concentrating on things, such as reading the newspaper or watching television: not at all 8. Moving or speaking so slowly that other people could have noticed. Or the opposite - being so fidgety or restless that you have been moving around a lot more than usual: not at all 9. Thoughts that you would be better off or of hurting yourself in some way: not at all Total score: 0 Source: Developed by Drs. Colby Cifuentes, Rosa Isela Campbell, Km Martin and colleagues, with an educational estefany from [employer]. Thrive Questionnaire Date Thrive assessed: 12/17/24 I am a: Patient What is your living situation today?: I have a steady place to live Within the past 12 months, did the food you bought not last and you didn't have the money to get more?: Never true Within the past 12 months, did you worry whether your food would run out before you got money to buy more?: I choose not to answer this question Do you have trouble paying for medicines?: No Do you have trouble getting transportation to medical appointments?: No Do you have trouble paying your heating and electricity bill?: No Do you have trouble taking care of your child, family member or friend?: No Do you have trouble with day-to-day activities such as bathing, preparing meals, shopping, managing finances, etc.?: No Are you currently unemployed and looking for a job?: No Are you interested in more education?: No Please select the resources that you would like help with: None Currently or been in a relationship where the following occur: I choose not to answer THRIVE Score: 0 AUDIT C Alcohol Use Questionnaire (AUDIT-C) 1. How often do you have a drink containing alcohol?: Monthly or less 2. How many drinks containing alcohol do you have on a typical day when you are drinking?: 1 or 2 3. How often do you have six or more drinks on one occasion?: Never Total Score: 1 ERIC-7 AMB Questionnaire ERIC-7 Date ERIC - 7 assessed: 06/11/24 Feeling nervous, anxious, or on edge: 0 = Not at all Not being able to stop or control worryin = Not at all Worrying too much about different things: 0 = Not at all Trouble relaxin = Not at all Being so restless that it is hard to sit still: 0 = Not at all Becoming easily annoyed or irritable: 1 = Several days Feeling afraid as if something awful might happen: 0 = Not at all Total ERIC-7 score (0-4 normal; 5-9 mild; 10-14 moderate; 15-21 severe): 1 Source: Developed by Drs. Colby Cifuentes, Rosa Isela Campbell, Km Martin and colleagues, with an educational estefany from [employer]. Physical exam (Primary Care) Vital Signs: Last Vital Signs Temp 97.3 F 04/08/25 15:42 Pulse 73 04/08/25 15:42 BP 108/82 04/08/25 15:42 Pulse Ox 94 04/08/25 15:42 Oxygen Delivery Method Room Air 04/08/25 15:42 BMI result Body Mass Index 30.3 Tobacco/Smoking Status: Tobacco use Status Tobacco use date assessed 04/08/25 04/08/25 15:43 Patient Tobacco Use Status Former Tobacco user 04/08/25 15:43 Tobacco use type Cigarette 04/08/25 15:43 e-Cigarette/Vaping Use Currently Using 04/08/25 16:04 PHQ-9: PHQ-9 Score PHQ-9: Total score 0 04/08/25 16:04 Thrive Assessment: Date of Thrive Assessment Date Thrive assessed 12/17/24 04/08/25 15:43 Currently or been in a relationship where the following occur: I choose not to answer Const General: alert; No acute distress Eyes Conjunctivae: conjunctivae normal Resp Auscultation: clear to auscultation bilaterally Cardio Rate: regular rate Rhythm: regular rhythm GI Inspection: Yes normal to inspection Extrem General: Yes normal to inspection and No edema Coding Level of Care Code Est Pt Level 4 (59964) Complex EM visit Add On G2211 Diagnoses Dilated aortic root I77.810 Impaired glucose tolerance R73.02 Obesity (BMI 30.0-34.9) E66.9 Hypercholesterolemia E78.00 Gastroesophageal reflux disease without esophagitis K21.9 Esophagitis presence: without esophagitis Breast cancer screening by mammogram Z12.31 Hematuria R31.9 Assessment & Plan Assessment & Plan (1) Dilated aortic root: Comment: Ascending aorta dilatation 4.0 12/30/2016, 4.28 October 2018, February 2020 4.2 cm, September 2019 to 4.2 cm April 2022 4.3 cm December 2023 4.3 cm Code(s): I77.810 - Thoracic aortic ectasia Category: Medical Plan: Continuing to monitor with last echocardiogram December 2023. declined testing for this year (2) Impaired glucose tolerance: Code(s): R73.02 - Impaired glucose tolerance (oral) Category: Medical Plan: Decrease the amount of carbohydrate intake, pasta, bread, rice and potatoes are all sugar and that is aside from all the sweet stuff, remember that fruits are good but they are Sweet also. (3) Obesity (BMI 30.0-34.9): Code(s): E66.9 - Obesity, unspecified Category: Medical Plan: Diet and exercise (4) Hypercholesterolemia: Code(s): E78.00 - Pure hypercholesterolemia, unspecified Category: Medical Plan: Avoid fried foods, chicken skin, eggs, butter margarine, pastries and meat. Be it pork or beef they have a lot of cholesterol atorvastatin 10 mg once a day (5) GERD (gastroesophageal reflux disease): Code(s): K21.9 - Gastro-esophageal reflux disease without esophagitis Category: Medical Qualifiers: Esophagitis presence: without esophagitis Qualified Code(s): K21.9 - Gastro-esophageal reflux disease without esophagitis Plan: Avoid the foods that causes that usually spicy foods, tomato products, juices, coffee, soda and foods that your sensitive to. After eating do not lie down, allow 3-4 hours before in lie down. And keep the head of bed above 30 degrees to avoid the acid from going up. (6) Breast cancer screening by mammogram: Code(s): Z12.31 - Encounter for screening mammogram for malignant neoplasm of breast Category: Medical Plan: Patient is reminded about mammogram (7) Hematuria: Code(s): R31.9 - Hematuria, unspecified Category: Medical Plan History of Present Illness The patient is a 59-year-old female presenting for a follow-up on multiple chronic conditions. Her medical history includes impaired glucose tolerance, hypercholesterolemia, GERD, asthma, stable pulmonary nodules, adjustment disorder with generalized anxiety disorder, depression, and cervical radiculopathy. Her aortic root dilation has been stable at 4.3 cm as of her last echocardiogram in December 2023. She has a history of chronic hematuria, which she states has been present since her 20s. Recent blood work from March 2025 showed an improved hemoglobin A1c of 5.6%, but her triglycerides were noted to be high and her HDL was lower. Other labs, including CBC, electrolytes, renal and liver function, B12, vitamin D, folic acid, and thyroid studies, were within normal limits. Regarding health maintenance, her last colonoscopy was in 2018 and her mammogram is currently due. The patient reports a history of shingles and is considering the Shingrix vaccine. The patient quit smoking cigarettes in 2016 but currently vapes both nicotine and marijuana, and reports experiencing chest tightness. She reports new onset of knee pain that radiates to her hip and has an upcoming orthopedic appointment. Health Maintenance The patient was reminded she is due for a mammogram. The two-dose shingles vaccine series was discussed, and the patient is considering it. The patient's request for Wegovy was denied by insurance; she was advised to explore programs through [employer] for potential coverage. Follow-up is scheduled in three months. Social History - Substance Use: The patient reports vaping both nicotine and marijuana. - She quit cigarette smoking in 2016. - Nutrition: The patient reports trying to reduce her intake of sugary foods. - Weight Management: A prescription for Wegovy was denied by her insurance. - She has participated in [employer]. 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 - Housing: Reports she lives in an apartment with a rent of $750. - Transportation: The patient drives 85 miles per day for her commute. Review of Systems - Respiratory: Reports chest tightness, which she associates with vaping. - Genitourinary: Reports chronic hematuria since her 20s. - Denies dysuria. - Gastrointestinal: Reports normal bowel movements. - Denies blood in stool. - Musculoskeletal: Reports knee pain that radiates up to the hip. - Psychiatric: Reports feeling stressed. Physical Exam Results - Labs (March 2025): - Hemoglobin A1c: 5.6%. - Lipid Panel: Triglycerides were high. - HDL cholesterol was noted to be decreased. - CBC, electrolytes, renal function, liver function, B12, vitamin D, folic acid, and thyroid studies were all within normal limits. - Urinalysis (recent): Showed mild hematuria. - Tests and Diagnostics: - Echocardiogram (December 2023): Showed a stable aortic root dilation at 4.3 cm. Plan Patient was informed and verbally consented to the use of an ambient scribe for clinic note documentation during this visit. 1. Hypercholesterolemia Recent lab work showed high triglycerides and a decrease in HDL. A new prescription for atorvastatin 10 mg once daily will be initiated. 2. Impaired Glucose Tolerance The patient's hemoglobin A1c has improved to 5.6%, which is within the normal range. The plan is to continue diet and exercise for management. 3. Aortic Root Dilation The patient's aortic root was stable at 4.3 cm on an echocardiogram from December 2023. The plan is to continue monitoring, and it was agreed to defer the next echocardiogram until next year. 4. Chronic Hematuria The patient has a long-standing history of hematuria, and a recent urine test was positive for mild hematuria. Given her marijuana use, a urine cytology will be ordered to rule out bladder pathology. The patient was informed she can complete this test anytime before her next follow-up in three months. 5. Anxiety And Depression The patient requested a refill for alprazolam. A refill will be sent to the pharmacy for same-day pickup. 6. Gastroesophageal Reflux Disease Medication for reflux will be renewed. 7. Nicotine And Marijuana Use The patient reports vaping nicotine and marijuana and is experiencing associated chest tightness. She was counseled on the increased risk of heart attacks, strokes, and bladder cancer associated with marijuana use. Edibles were suggested as a safer alternative to inhalation. 8. Knee Pain The patient has an upcoming orthopedic appointment on the for knee pain that radiates to the hip, possibly related to the iliotibial band. The use of anti-inflammatory medications was suggested for symptom relief. Discussion Notes I discussed the patient's recent lab results, highlighting the improvement in her HbA1c to 5.6%, which is within the normal range, but also noting the high triglycerides. We will start atorvastatin 10 mg daily for her cholesterol. I counseled her on the risks associated with vaping marijuana, including an increased risk of heart attacks, strokes, and bladder cancer, and suggested edibles as a safer alternative. Given her chronic hematuria and marijuana use, I explained the rationale for ordering a urine cytology to further evaluate for any underlying bladder issues, reassuring her that it is a non-painful test that can be done before her next visit. We reviewed that her aortic root dilation is stable per the last echocardiogram, and we agreed to defer repeat imaging until next year. I reminded her about her overdue mammogram and discussed the shingles vaccine, which she is now considering. I refilled her alprazolam as requested and arranged for a three-month follow-up appointment. Patient Instructions - Start taking atorvastatin 10 mg once a day for your high cholesterol. - I have sent a refill for your alprazolam to the pharmacy; you should be able to pick it up today. - A prescription for your reflux medication will be renewed. - It is important to schedule your mammogram, as it is overdue. - You need to provide a urine sample for a special test called a urine cytology. - This is to check for any abnormal cells, and you can do it anytime before your next appointment. - Consider getting the shingles vaccine, which is given in two shots and is available at the pharmacy. - Vaping marijuana increases your risk of heart attack, stroke, and bladder cancer. - Using edibles is a safer choice. - Your insurance denied [place]. - You can ask [employer] if they have programs that can help make it more affordable. - Continue with your plan to see the orthopedic doctor for your knee pain. - Schedule a follow-up appointment in three months. Orders: Orders Urine Cytology Today R31.9 - Hematuria, unspecified Medications: Refilled alprazolam 0.5 mg PO BID 60 tabs 0RF 30 days F43.20 - Adjustment disorder, unspecified
--- OUTSIDE RECORDS SUMMARY | 2025-04-08 17:09 | XMS_ITS | Patient Health Record ---
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 Name Role Phone Po Graciela JAEGER Primary Care Provider Colby Chu [phone] Allergies Allergen (clinical drug ingredient) Drug/Non Drug [...] Problem Status W/U Status Risk Notes Problem Screening for malignant neoplasm of colon ([id number]) Encounter for screening for malignant neoplasm of colon (Z12.11) Active confirmed Problem Gastroesophageal reflux disease ([id number]) Gastroesophageal reflux disease, esophagitis presence not specified (K21.9) Active confirmed Plan Of Treatment Pending Test Test Name Order Date GI BIOPSY 11/05/2018 Future Test Test Name Order Date UPPER GI ENDOSCOPY 08/09/2018 COLONOSCOPY 08/09/2018 Insurance Providers Payer Name Payer Address Payer Phone Subscriber Number Group Number Insured Name Patient Relationship to Insured Coverage Start Date Coverage End Date [facility] [address] [facility] [place] [phone] [id number] DOMONIQUE ALEXIS Self - patient is the [...]
== END 2025-04-08 16:31 | disposition home or self-care (01) ==
LOC: HO.HMCH 15:32
PROVIDERS: PCP Internal Medicine; Visit Provider Internal Medicine
DX: I77.810 Thoracic aortic ectasia (principal); R73.02 Impaired glucose tolerance (oral); E66.9 Obesity, unspecified; Z68.30 Body mass index [BMI] 30.0-30.9, adult; E78.00 Pure hypercholesterolemia, unspecified; K21.9 Gastro-esophageal reflux disease without esophagitis; Z12.31 Encounter for screening mammogram for malignant neoplasm of breast; R31.9 Hematuria, unspecified

== ENCOUNTER 2025-04-14 13:52 | Outpatient (REF) | payer OTHER, SELFPAY ==
[2025-04-14 14:19] LABS: Appearance Urine Clear; Glucose Urine UA Negative (Negative); PH 6.5 (5.0-9.0); Specific Gravity - Urine <= 1.005 (1.005-1.025); UMIC TRIGGER UACC YES
== END 2025-04-14 13:53 | disposition home or self-care (01) ==
LOC: HO.LAB 13:52
PROVIDERS: PCP Internal Medicine; Visit Provider Internal Medicine
DX: R31.9 Hematuria, unspecified (principal)
CPT/HCPCS: 81001; 88112

== ENCOUNTER 2025-05-09 08:55 | Outpatient (REF) | payer OTHER, SELFPAY ==
--- NOTE | ~2025-05-09 | XR_ITS ---
EXAMINATION: XR KNEE, RIGHT CLINICAL INFORMATION: M25.569 - Pain in unspecified knee COMPARISON: None available. TECHNIQUE: Two views of the right knee. AP bilateral knees one view FINDINGS: Right knee: Mild lateral compartment arthritis. Medial and patellofemoral compartment is preserved. No visible acute fracture or dislocation. Small suprapatellar joint fluid. No suspicious soft tissue calcifications. Left knee: Femorotibial joint space is preserved. No acute finding. XR/XR knee RT 3V IMPRESSION: Right knee: No acute findings Mild lateral compartment arthritis Electronically signed by: Theo Gordon MD 05/09/2025 04:29 PM [facility]
== END 2025-05-09 08:56 | disposition home or self-care (01) ==
LOC: HO.HOSX 08:55
PROVIDERS: Visit Provider Physician Assistant
DX: M17.11 Unilateral primary osteoarthritis, right knee (principal)
CPT/HCPCS: 20610; 73562; J0665; J1100; J2003

== ENCOUNTER 2025-05-09 12:37 | Outpatient (AMB) | payer OTHER, SELFPAY ==
--- NOTE | 2025-05-09 13:01 | MHC.OFFVIS ---
Vital Signs 05/09/25 13:07 Height 5 ft 6 in Weight 188 lb BMI 30.3 Intake Visit Reasons: New Pt - right knee pain Intake Note: Barbara is a 59 year old female who presents today as a new patient for a evaluation of her right knee pain. Patient reports ongoing pain for many years. She states that he pain is on the medial aspect of the knee. She feels her knee cap pop out of place when she is crossing her legs. Patient notices that her pain is worse when she is walking, bending and going up and down the stairs. She has tried ibuprofen and Advil with mild relief GMG gummies. Allergies barium sulfate Allergy (Intermediate, Verified 05/09/25 13:05) hypertension carisoprodol (CARISOPRODOL) Allergy (Intermediate, Verified 05/09/25 13:05) DIFFICULTY BREATHING Sulfa (Sulfonamide Antibiotics) (SULFA (SULFONAMIDE ANTIBIOTICS)) Allergy (Intermediate, Verified 05/09/25 13:05) NAUSEA/DIZZINESS/SEVERE BACK PAIN, dyspnea varenicline Allergy (Intermediate, Verified 05/09/25 13:05) Unknown simvastatin Adverse Reaction (Intermediate, Verified 05/09/25 13:05) weird dreams HPI HPI New Pt - right knee pain: Details: The patient is a 59-year-old female who presents to the office today for evaluation of right knee pain. She reports the knee pain has been present for the past few years. She denies any injury or trauma. Additionally, she feels as though her patella dislocates occasionally in which she has to straighten her leg fully to reduced. She has not been seen in the emergency department for this issue after suspected dislocation. Pain is on the both medial and lateral aspect of the knee and occasionally radiates up the lateral aspect over the IT band. [facility] Medical History TSH elevation Cervical radiculopathy Breast cancer screening by mammogram Flank pain Panic anxiety syndrome COVID-19 virus infection Counseling and coordination of care Stress at work Nausea Chronic vertigo Elbow pain, left Obesity (BMI 30-39.9) Tear of left acetabular labrum Lumbar disc herniation Carpal tunnel syndrome Pulmonary nodule Dilated aortic root Asthma GERD (gastroesophageal reflux disease) Impaired glucose tolerance Hypercholesterolemia Allergic rhinitis Surgical History History of endometrial ablation History of tubal ligation Family History Father Emphysema of lung Mother Anxiety Diabetes Maternal Grandmother Breast cancer Son In good health Family/Other Anxiety Chronic mental illness Other Mental health problem Social History Housing: Apartment Alcohol intake: current Comment: once q 6 months beer Patient Tobacco Use Status: Former Tobacco user Tobacco use type: Cigarette Years Smoked: smokes pot. quit 02/12/2017 e-Cigarette/Vaping Use: Currently Using Second Hand Smoke Exposure: Yes service: No Current occupational status: employed Cognitive needs: No Hearing needs: No Vision needs: No Review of Systems Const All systems reviewed & are unremarkable except as noted in HPI and below Physical Exam Vital Signs: BMI result Body Mass Index 30.3 Const General: cooperative, healthy appearing and no acute distress Resp Effort & Inspection: normal respiratory effort and able to speak in complete sentences Extrem Other: Right knee: Normal to inspection. No ecchymosis, erythema, or joint effusion. Mild tenderness to palpation along the medial or lateral joint lines. Full knee extension and flexion. NVI. Psych Appearance: grossly normal Mental Status: mental status grossly normal Attitude: cooperative Office Procedures AMB Joint Injection/Aspiration Joint Injection/Aspiration Primary Site: Right Knee Prep: site was prepped using aseptic technique, ethochloride spray was applied and injection warnings given Injected: 40 mg of, Decadron, with 3 mL of, 1% plain Lidocaine, 0.25% Bupivacaine and in the joint Approach Used: anterolateral Procedure: The patient tolerated the procedure well, but had some pain with the injection and there was some relief with the local anesthesia Coding 80235 - Large joint Procedure code (CPT) selection complete Assessment & Plan Assessment & Plan (1) Osteoarthritis of right knee: Code(s): M17.11 - Unilateral primary osteoarthritis, right knee Category: Medical Plan The patient was offered a cortisone injection in right knee. The patient was explained the risks, benefits, and alternatives to receiving this injection. After receiving consent for the injection, the patient had the procedure done while in the office today. The patient tolerated the procedure well with no complications. The risks, benefits, and alternatives to a corticosteroid injection were discussed with the patient, including the potential benefits of decreased inflammation and pain, improved function, and diagnostic value. Risks were reviewed, including post-injection flare, skin or fat atrophy, transient facial flushing, temporary elevation in blood glucose, bruising, and rare but serious complications such as infection, tendon weakening or rupture, and cartilage damage with repeated injections. Procedure-related discomfort and possible vasovagal symptoms were also explained. Alternatives were reviewed, including NSAIDs, physical therapy, activity modification, bracing, ice/heat, weight management, hyaluronic acid injections when appropriate, PRP or other orthobiologics, oral steroids, surgery depending on pathology, and observation. The patient verbalized understanding and elected to proceed. After receiving consent for the injection, the patient had the procedure done while in the office today. The patient tolerated the procedure well with no complications. Patient was also offered a playmaker knee brace off the shelf while in the office today. She will wear this during activities as needed. Follow-up will be PRN, or sooner if needed X-rays of the right knee which were obtained while in the office today and were reviewed by me, Tammy Hagan PA-C, revealed osteoarthritis Orders: Orders XR knee RT 3V Today M25.569 - Pain in unspecified knee Coding Level of Care Code New Pt Level 4 (83222) Add On Problem Visit Only Diagnoses Osteoarthritis of right knee M17.11 CPT Codes Coding - 47129 Large joint: 84157 - Large joint ([id number])
[2025-05-09 13:07] VITALS: BMI 30.3
== END 2025-05-09 13:57 | disposition home or self-care (01) ==
LOC: HO.HOS 12:38
PROVIDERS: PCP Internal Medicine; Visit Provider Physician Assistant
DX: M17.11 Unilateral primary osteoarthritis, right knee (principal)
CPT/HCPCS: 20610; 99204

== ENCOUNTER → 2025-05-09 12:49 | Outpatient (BNV) | payer OTHER, SELFPAY | PROVIDERS: Visit Provider Radiology Diagnostic Ultrasound | DX: M17.11 Unilateral primary osteoarthritis, right knee (principal) | CPT/HCPCS: 73562 ==